=== PATIENT | female | born 1955 | race Caucasian/White ===

== ENCOUNTER 2018-06-17 08:01 | Outpatient (CLI) | payer MEDICARE ==
--- NOTE | 2018-06-17 10:03 | MRI ---
MRI LUMBAR SPINE: HISTORY: Lumbar radiculopathy, M54.16. TECHNIQUE: Multiplanar, multisequence, noncontrast enhanced MR images of the lumbar spine obtained. FINDINGS: Images demonstrate an approximately 40% compression fracture involving the L1 vertebral body, especia lly involving the superior endplate of the L1 level. This appears to be old. T12-L1: There is a small central disk protrusion in the right paracentral T12-L1 level, minimally bu t not significantly compressing the thecal sac. The spinal cord is not compressed. The neural rylee en are patent. L1-L2: Disk desiccation is seen. There is a broad-based disk bulge with bilateral facet hypertrophy . No significant degree of central stenosis seen. The neural foramen are patent. L2-L3: Moderate bilateral facet hypertrophy is seen. No significant degree of central stenosis is s een. The neural foramen are patent. L3-L4: There are some congenitally short pedicles. Moderate bilateral facet hypertrophic change is seen. Ligamentum flavum hypertrophy is also seen. This results in a moderate degree of L3-L4 centra l and lateral recess stenosis. No evidence of disk herniation is seen. The neural foramen are paten t. L4-L5: Disk desiccation is seen. There is a broad-based central disk protrusion. Bilateral facet a nd ligamentum flavum hypertrophy is seen. This results in severe L4-L5 central and lateral recess st enosis. Moderate bilateral neural foraminal narrowing is also seen. L5-S1: A broad-based central disk protrusion is seen. Bilateral facet hypertrophy is seen. This re sults in a mild but not significant degree of central stenosis. Mild bilateral neural foraminal narr owing is seen. IMPRESSION: Severe L4-L5 central and lateral recess stenosis due to a broad-based central disk protrusion and kevin ateral facet and ligamentum flavum hypertrophy. POS: C
== END 2018-06-17 08:02 | disposition home or self-care (01) ==
LOC: TBSIIMAG 08:01
PROVIDERS: ATTEND Neurological Surgery
DX: M51.16 Intervertebral disc disorders with radiculopathy, lumbar region (principal); M48.061 Spinal stenosis, lumbar region without neurogenic claudication; M24.28 Disorder of ligament, vertebrae
CPT/HCPCS: 72148

== ENCOUNTER 2018-08-19 15:11 | Outpatient (CLI) | payer MEDICARE, OTHER | END 2018-08-19 15:12 | disposition home or self-care (01) | LOC: BICMAMMO 15:11 | PROVIDERS: ATTEND Family Medicine | DX: Z12.31 Encounter for screening mammogram for malignant neoplasm of breast (principal); L90.5 Scar conditions and fibrosis of skin; Z85.3 Personal history of malignant neoplasm of breast; Z80.3 Family history of malignant neoplasm of breast; Z98.890 Other specified postprocedural states | CPT/HCPCS: 77063; 77067 ==

== ENCOUNTER 2018-09-10 14:53 | Outpatient (CLI) | payer MEDICARE, OTHER ==
--- NOTE | 2018-09-10 16:05 | RAD ---
RADIOGRAPH CHEST 2 VIEWS: HISTORY: 63-year-old female with cough and fever. FINDINGS: There is no air space density, pulmonary edema, pleural effusion, pneumothorax, or cardiomegaly. IMPRESSION: No acute cardiopulmonary findings. jn [] POS: [facility]
== END 2018-09-10 14:54 | disposition home or self-care (01) ==
LOC: SCSRAD 14:53
PROVIDERS: ATTEND Family Medicine
DX: J18.9 Pneumonia, unspecified organism (principal)
CPT/HCPCS: 71046

== ENCOUNTER 2018-12-28 16:37 | Outpatient (CLI) | payer MEDICARE, OTHER ==
--- NOTE | 2018-12-29 16:07 | RAD ---
F2 views left ankle HISTORY: left ankle pain AP and lateral views left ankle demonstrates soft tissue swelling adjacent to the lateral malleolus. This is compatible with soft tissue injury. No evidence of acute fractures or bony lesions seen. IMPRESSION: No evidence of acute fractures. Lateral ankle soft tissue swelling.
--- NOTE | 2018-12-29 16:14 | RAD ---
RIGHT KNEE TWO VIEWS: 12/29/18 HISTORY: Bilateral knee pain. There are arthritic changes of the knee. There is spiking of the tibial spines. There is some minimal medial compartment narrowing. Small patellofemoral spurs. IMPRESSION: Mild arthritic changes of the knee. POS: [facility]
--- NOTE | 2018-12-29 16:15 | RAD ---
TWO VIEWS OF THE LEFT KNEE: 12/29/18 COMPARISON: None. HISTORY: Bilateral knee pain. FINDINGS: Two views of the left knee shows no evidence of acute fracture or dislocation. Small osteophytes are seen in all three compartments consistent with osteoarthritis. No knee effusion is seen. IMPRESSION: Mild left knee osteoarthritis. POS: [facility]
== END 2018-12-28 16:38 | disposition home or self-care (01) ==
LOC: SCSRAD 16:37
PROVIDERS: ATTEND Physical Medicine & Rehabilitation
DX: M25.561 Pain in right knee (principal); M25.562 Pain in left knee; M17.0 Bilateral primary osteoarthritis of knee; M25.572 Pain in left ankle and joints of left foot; M79.89 Other specified soft tissue disorders

== ENCOUNTER 2019-05-03 12:01 | Outpatient (CLI) | payer MEDICARE, OTHER ==
--- NOTE | 2019-05-03 13:52 | MRI ---
MRI LUMBAR SPINE WITHOUT CONTRAST: HISTORY: Lumbago. COMPARISON: 06/17/2018 FINDINGS: Stable chronic compression fracture with mild loss of vertebral body height at L1. No significant re tropulsion. Appropriate signal intensity in the remaining lumbar vertebrae. No significant STIR hyperintensity t o suggest vertebral body edema or ligamentous injury. Symmetric signal intensity of the paraspinal muscles. Appropriate signal intensity of the visualized solid organs. The conus medullaris terminates at the mid T12 level. T12-L1: Mild central canal stenosis secondary to disk protrusion. There is mass effect upon the rig ht hemicord. No cord signal abnormality. Bilaterally, the neural foramina are patent. L1-L2: Adequate disk hydration. Minimal left and right paracentral disk bulges without significant central canal stenosis. The neural foramina are patent. L2-L3: Adequate disk hydration. No significant posterior disk abnormality. There is ligamentum fla vum thickening and facet hypertrophy. No significant central canal stenosis. Bilaterally, the neura l foramina are patent. L3-L4: Adequate disk hydration. No significant posterior disk abnormality. No significant central canal stenosis. Ligamentum flavum thickening and facet hypertrophy are present. Bilaterally, the ne ural foramina are patent. L4-L5: Desiccation with mild loss of disk space height. Broad-based disk bulge, ligamentum flavum t hickening, and facet hypertrophy result in moderate central canal stenosis. Moderate right and moder ate to severe left foraminal narrowing, predominantly due to disk material. L5-S1: Desiccation with mild loss of disk space height. There is a posterior disk protrusion that a buts the thecal sac. No significant central canal stenosis. The neural foramina are mildly narrowed bilaterally. When compared to the previous examination, the degree of central canal stenosis at L4-L5 has not smiley ged; however, there is progression of bilateral foraminal narrowing. Stable changes at L5-S1. IMPRESSION: 1. Degenerative disk disease of the lumbar spine, as above. 2. Slightly worsening neural foraminal narrowing at L4-L5. Currently, there is moderate neural fora ashley narrowing on the right at L4-L5 and moderate to severe neural foraminal narrowing on the left a t L4-L5. POS: OFF
== END 2019-05-03 12:02 | disposition home or self-care (01) ==
LOC: BICMRI 12:01
PROVIDERS: ATTEND Physical Medicine & Rehabilitation
DX: M48.07 Spinal stenosis, lumbosacral region (principal); M79.605 Pain in left leg; M51.36 Other intervertebral disc degeneration, lumbar region
CPT/HCPCS: 72148

== ENCOUNTER 2019-06-08 14:02 | Outpatient (CLI) | payer MEDICARE, OTHER ==
--- NOTE | 2019-06-08 14:50 | BD ---
DEXA BONE DENSITOMETRY: (Dual energy X-ray Absorptiometry) 06/08/19 HISTORY: 64-year-old white female for age-related, postmenopausal, osteoporosis screening examination. Ht. 69 inches. Wt. 240 lbs. Age of menopause: 46 years. COMPARISON: None available. FINDINGS: The bone mineral density (BMD) is given in grams per square centimeter (g/cm2): LUMBAR SPINE: BMD(g/cm2) T-score Z-score L1: 1.284 2.7 4.3 L2: 1.160 1.2 3.0 L3: 1.165 0.7 2.6 L4: 1.091 0.3 2.2 Total: 1.169 1.1 2.9 HIP: Femoral neck: 0.818 -0.3 1.3 Total: 1.219 2.3 3.6 IMPRESSION: 1) The mean bone mineral density of the lumbar spine is normal. Fracture risk is not increased. 2) The bone mineral density of the femoral neck is normal. Fracture risk is not increased. GABINO R POS: [facility]
== END 2019-06-08 14:03 | disposition home or self-care (01) ==
LOC: BICMAMMO 14:02
PROVIDERS: ATTEND Family Medicine
DX: Z13.820 Encounter for screening for osteoporosis (principal); E28.39 Other primary ovarian failure; Z78.0 Asymptomatic menopausal state
CPT/HCPCS: 77080

== ENCOUNTER 2019-06-15 10:45 | Outpatient (CLI) | payer MEDICARE, OTHER ==
--- NOTE | 2019-06-15 12:43 | RAD ---
RIGHT SHOULDER 4 VIEWS: Date: 06/15/19 HISTORY: Shoulder pain. FINDINGS: No fracture or dislocation identified. AC joint normally aligned. No significant degenerative change apparent. IMPRESSION: No acute findings. POS: OFF
== END 2019-06-15 10:46 | disposition home or self-care (01) ==
LOC: SCSRAD 10:45
PROVIDERS: ATTEND Family Medicine
DX: M25.511 Pain in right shoulder (principal)
CPT/HCPCS: 36415; 80053; 80061; 81001; 82043; 84443; 85025; 86803

== ENCOUNTER 2019-06-21 15:10 | Outpatient (CLI) | payer MEDICARE, OTHER | END 2019-06-21 15:11 | disposition home or self-care (01) | LOC: DTY/OP 15:10 | PROVIDERS: ATTEND Family Medicine | DX: E11.65 Type 2 diabetes mellitus with hyperglycemia (principal) | CPT/HCPCS: 97802 ==

== ENCOUNTER 2019-08-23 16:02 | Outpatient (CLI) | payer MEDICARE, OTHER ==
--- NOTE | 2019-08-24 08:22 | MMO ---
Bilateral MAMMO Bilat Screen [facility]. CLINICAL HISTORY: Patient is 64 years old and is seen for screening. The patient has the following family history of breast cancer: mother; sister and maternal grandmother. The patient has a history of Ultrasound guided core biopsy procedure revealed invasive ductal left breast carcinoma in Feb, 2009 and malignant (generic) in the left breast 2008. The patient has a history of left Lumpectomy in Feb, 2009 - invasive ductal carcinoma - PT STATES Partial MAST., left Lumpectomy in Feb, 2009 - malignant, right Excisional Biopsy in 1996 - benign and left Excisional Biopsy in 1985 - benign. VIEWS: The views performed were: bilateral craniocaudal with tomosynthesis and bilateral mediolateral oblique with tomosynthesis. FILMS COMPARED: The present examination has been compared to prior imaging studies performed at [facility] on 06/05/2015, 06/17/2016, 06/30/2017 and 08/19/2018. This study has been interpreted with the assistance of computer-aided detection. MAMMOGRAM FINDINGS: There are scattered fibroglandular densities. Finding 1: There are stable benign appearing calcifications seen in both breasts. Finding 2: There are stable post operative changes seen in the left breast. There are no suspicious masses, suspicious calcifications, or new areas of architectural distortion. IMPRESSION: THERE IS NO MAMMOGRAPHIC EVIDENCE OF MALIGNANCY. A ROUTINE FOLLOW-UP MAMMOGRAM IN 1 YEAR IS RECOMMENDED. THE RESULTS OF THIS EXAM WERE SENT TO THE PATIENT. ACR BI-RADS Category 2 - Benign finding MAMMOGRAPHY NOTE: 1. A negative mammogram report should not delay a biopsy if a dominant of clinically suspicious mass is present. 2. Approximately 10% to 15% of breast cancers are not detected by mammography. 3. Adenosis and dense breasts may obscure an underlying neoplasm. Reported by: TYSON PEDRAZA MD Electonically Signed: [id number]
== END 2019-08-23 16:03 | disposition home or self-care (01) ==
LOC: BICMAMMO 16:02
PROVIDERS: ATTEND Family Medicine
DX: Z12.31 Encounter for screening mammogram for malignant neoplasm of breast (principal); Z80.3 Family history of malignant neoplasm of breast
CPT/HCPCS: 77063; 77067

== ENCOUNTER 2019-11-04 14:25 | Outpatient (CLI) | payer MEDICARE, OTHER ==
--- NOTE | 2019-11-04 15:34 | MRI ---
MRI of thecervical spine: 11/04/2019 COMPARISON:None available HISTORY:Cervical spondylosis TECHNIQUE: Multiplanar multisequence MR imaging of thecervical spine without contrast Findings:The sagittal STIR imaging demonstrates no focal area of osseous marrow edema. C2-3: No significant central canal stenosis. Bilateral facet and uncovertebral osteophyte formation, right greater than left. Moderate right neural foraminal stenosis. No significant left neural foraminal stenosis. C3-4: Disc desiccation and mild disc bulge with mild central canal stenosis. Mild bilateral facet and uncovertebral osteophyte formation with mild bilateral neural foraminal stenosis. C4-5: Disc desiccation with minimal disc bulge and small central disc protrusion with minimal associa arnold central canal stenosis. No significant neural foraminal stenosis. C5-6: There is disc space narrowing with disc desiccation and mild disc bulge partially effacing the ventral thecal sac and causing mild central canal stenosis. Facet and uncovertebral osteophyte formation noted bilaterally with mild/moderate bilateral neural foraminal stenosis, right greater sher n left. C6-7: Disc space narrowing with disc desiccation and disc bulge effacing the ventral thecal sac and c ausing a mild/moderate degree of central canal stenosis. Bilateral facet and uncovertebral osteophyte formation with moderate/severe bilateral neural foraminal stenosis, left greater than righ t. C7-T1: Mild bilateral facet hypertrophy with no significant central canal or neural foraminal stenosi s. Detailed assessment for central canal and/or neural foraminal stenosis is limited secondary to motion artifact. No focal area of abnormal signal intensity identified within the cervical cord. IMPRESSION:Multilevel cervical spine degenerative change, most prominent at C6-7 as detailed above.
== END 2019-11-04 14:26 | disposition home or self-care (01) ==
LOC: TBSIIMAG 14:25
PROVIDERS: ATTEND Neurological Surgery
DX: M47.812 Spondylosis without myelopathy or radiculopathy, cervical region (principal)
CPT/HCPCS: 72141

== ENCOUNTER 2019-11-11 05:29 | Outpatient (CLI) | payer MEDICARE ==
[2019-11-11 16:09] LABS: Anion Gap 15 mmol/L (10-20); BUN (Urea Nitrogen) 25 mg/dL (9.8-20.1); Calc. Creatinine Clearance 0 mL/min (70-130); Calcium 10.6 mg/dL (7.8-10.44); Carbon Dioxide 26 mmol/L (23-31); Chloride 101 mmol/L (98-107); Estimated GFR-MDRD 48; Glucose 241 mg/dL (80-115); Potassium 4.6 mmol/L (3.5-5.1); Sodium 137 mmol/L (136-145)
== END 2019-11-11 05:30 | disposition home or self-care (01) ==
LOC: LABBT 05:29
PROVIDERS: ATTEND Neurological Surgery
DX: Z01.812 Encounter for preprocedural laboratory examination (principal); M47.816 Spondylosis without myelopathy or radiculopathy, lumbar region
CPT/HCPCS: 80048

== ENCOUNTER 2019-11-14 07:41 | Inpatient (IN) | payer MEDICARE ==
[2019-11-11 14:35] VITALS: BMI 37.5
--- NOTE | 2019-11-14 07:14 | HP ---
HISTORY OF PRESENT ILLNESS: Ms. Hickey is a pleasant 64-year-old woman, here today, known to us for previous evaluation in the end of 2017 for lower back pain and bilateral lower extremity discomforts, who we ultimately referred to for epidural steroid injections. She has been doing well with those until a fall in March of this past year, at which point, her pain took a turn for the worse and the injections started to lose their efficacy. She has had some left anterior thigh pain and numbness, but really her major concerns are that of neurogenic claudication. She is walker dependent at this point. She brings an MRI from April of 2018 that reveals severe central canal stenosis at L4-L5. PHYSICAL EXAMINATION: GENERAL: She is alert and oriented x3. Gait is severely antalgic and slow. She uses a walker and at times even uses a wheelchair. EXTREMITIES: Lower extremity; motor exam is normal, though limited by pain. She has a positive right and left straight leg raise. Negative Leigh bilaterally. PAST MEDICAL HISTORY: Significant for hypercholesterolemia, chronic pain syndrome, anxiety, arthritis, depression, diabetes, headaches, hypertension, and hypothyroidism. PAST SURGICAL HISTORY: Tonsillectomy and adenoidectomy, 2 benign breast mass resections, partial hysterectomy, cholecystectomy, tubal ligation. ALLERGIES: PENICILLINS AND STATIN. CURRENT MEDICATIONS: 1. Glipizide. 2. Tramadol. 3. Tizanidine. 4. Olanzapine. 5. Trazodone. 6. Bupropion. 7. Duloxetine. 8. Metformin. 9. Januvia. 10. Amlodipine. 11. Armodafinil. 12. Olmesartan. 13. Gabapentin. 14. Levothyroxine. 15. Hydrochlorothiazide. 16. Vitamin D. 17. Colestipol. 18. Fluticasone. ASSESSMENT: Lumbar spinal stenosis and neurogenic claudication. PLAN: Dr. Mejia met with the patient, reviewed imaging, and advocated for an L4-L5 decompression. He explained to the patient risks, benefits, and alternatives to the procedure. The patient expressed understanding and elected to move forward with surgery as discussed. I do believe the patient is mentally competent and capable of making medical decisions for herself. We will move forward with surgery as planned. Job ID: [id number]
[2019-11-14] MEDS ORDERED: Levofloxacin 500 mg/D5W 100 ml Premix Bag ONE (08:38)
[2019-11-14] MEDS ORDERED: Clindamycin/D5W 900 mg/50 ml Premix Bag ONE (08:38)
[2019-11-14] MEDS ORDERED: Morphine 4 MG/ML VIAL ONE ×2 (08:54→09:53)
[2019-11-14] MEDS ORDERED: Bupivacaine PF 0.5% 30 ML VIAL ONE (10:01)
[2019-11-14] MEDS ORDERED: Thrombin 5000 UNITS/5 ML VIAL ONE (10:01)
[2019-11-14] MEDS ORDERED: Fentanyl 100 MCG/2 ML VIAL ONE ×2 (10:27→11:35)
--- NOTE | 2019-11-14 11:45 | OP ---
DATE OF PROCEDURE: 11/14/2019 CHIEF ESTIMATOR: Wang Nguyễn PA-C INDICATION: Pain. DIAGNOSIS: Lumbar stenosis with claudication and radiculopathy. PROCEDURE PERFORMED: L4-L5 lumbar decompression. ANESTHESIA: General. DESCRIPTION OF PROCEDURE: The patient was brought into the operating room and placed under general anesthesia. She was flipped from the supine to a prone position on the operating room table. A linear incision was planned over L4-L5. After prepping and draping, and after an appropriate preoperative pause, the incision was created. The soft tissues were swept away from midline. Self-retaining retractors were placed in the wound for optimal exposure. After confirming the appropriate level with C-arm fluoroscopy, an Adson rongeur was used to remove the spinous process along the inferior aspect of L4 and the superior aspect of L5. High-speed cutting drill bit as well as 2, 3, and 4 mm Kerrisons were then used to complete the laminectomy at L4-L5 decompressing the central canal as well as the lateral recesses. After completing the decompression, the wound was irrigated. Hemostasis was maintained throughout. The wound was then closed in anatomic layers, and a pressure dressing was applied. There were no known procedural complications. Job ID: [id number]
[2019-11-14] MEDS ORDERED: HYDROcodone/Acetaminophen 5/325 mg Tablet ONE (13:40)
[2019-11-14] MEDS ORDERED: Lidocaine 1% PF 5 ML VIAL ONE (15:06)
[2019-11-14] MEDS ORDERED: PROPOFOL 200 MG/20 ML VIAL ONE (15:06)
[2019-11-14] MEDS ORDERED: Rocuronium Bromide 10 MG/ML (10ML VIAL) ONE (15:06)
[2019-11-14] MEDS ORDERED: Metoclopramide HCl 10 MG/2 ML VIAL ONE (15:06)
[2019-11-14] MEDS ORDERED: Glycopyrrolate 0.2 MG/ML 5 ML SYRINGE ONE (15:06)
[2019-11-14] MEDS ORDERED: diphenhydrAMINE 25 MG CAP PO PRN (16:48)
[2019-11-14] MEDS ORDERED: Bisacodyl 10 MG SUPP PR PRN (16:48)
[2019-11-14] MEDS ORDERED: diphenhydrAMINE 50 MG/ML VIAL IVP PRN (16:48)
[2019-11-14] MEDS ORDERED: Acetaminophen 325 MG TAB PO PRN (16:48)
[2019-11-14] MEDS ORDERED: Mag-Al 1200 mg/1200 mg/30 ML UDCUP PO PRN (16:48)
[2019-11-14] MEDS ORDERED: Morphine 4 MG/ML VIAL SLOW IVP PRN (16:48)
[2019-11-14] MEDS ORDERED: tiZANidine HCl 4 MG TAB PO PRN (16:58)
[2019-11-14] MEDS ORDERED: Ondansetron PF 4 MG/2 ML Vial IM PRN (16:59)
[2019-11-14] MEDS ORDERED: Morphine 2 MG/ML SYRINGE SLOW IVP PRN (17:01)
[2019-11-14] MEDS ORDERED: Gabapentin 300 MG CAP PO SCH (17:15)
[2019-11-14] MEDS ORDERED: Acetaminophen/Codeine 30-300mg Tablet PO PRN (17:49)
[2019-11-14] MEDS: Acetaminophen/Codeine 30-300mg Tablet PO PRN ×2 (18:02→21:23)
[2019-11-14] MEDS: Sodium Chloride 0.9% 1,000 ML IV SCH (18:33)
[2019-11-14] MEDS ORDERED: DULoxetine 30 MG CAP PO SCH (21:00)
[2019-11-14] MEDS ORDERED: Melatonin 3 MG TAB PO SCH (21:00)
[2019-11-14] MEDS ORDERED: APAP PO SCH (21:00)
[2019-11-14] MEDS ORDERED: CODEINE PO SCH (21:00)
[2019-11-14] MEDS: Loperamide HCl 2 MG CAP PO SCH (21:22)
[2019-11-14] MEDS: tiZANidine HCl 4 MG TAB PO SCH (21:22)
[2019-11-14] MEDS: Gabapentin 300 MG CAP PO SCH (21:22)
[2019-11-15] MEDS: Acetaminophen/Codeine 30-300mg Tablet PO PRN ×3 (00:24→11:07)
[2019-11-15] MEDS ORDERED: Levothyroxine Sodium 25 MCG TAB PO SCH (06:00)
[2019-11-15] MEDS: Sodium Chloride 0.9% 1,000 ML IV SCH (06:33)
[2019-11-15] MEDS ORDERED: glipiZIDE 10 MG TAB PO SCH (07:30)
[2019-11-15] MEDS ORDERED: metFORMIN 500 MG TAB PO SCH (08:00)
[2019-11-15] MEDS: tiZANidine HCl 4 MG TAB PO SCH (08:10)
[2019-11-15] MEDS: Losartan 25 MG TAB PO SCH ×2 (08:10→11:14)
[2019-11-15] MEDS: Loperamide HCl 2 MG CAP PO SCH (08:12)
[2019-11-15] MEDS: Gabapentin 300 MG CAP PO SCH (08:12)
[2019-11-15] MEDS ORDERED: Multivitamin W/ Minerals 1 TAB PO SCH (09:00)
[2019-11-15] MEDS ORDERED: ARMODAFINIL 250 MG PO SCH (09:00)
[2019-11-15] MEDS ORDERED: Hydrochlorothiazide 25 MG TAB PO SCH (09:00)
[2019-11-15] MEDS ORDERED: Amlodipine 10 MG TAB PO SCH (09:00)
[2019-11-15] MEDS ORDERED: buPROPion 75 MG TAB PO SCH (09:00)
[2019-11-15] MEDS ORDERED: Cyanocobalamin (Vitamin B-12) 1,000 MCG TAB PO SCH (09:00)
[2019-11-15] MEDS ORDERED: traZODone HCl 50 MG TAB PO SCH (09:00)
[2019-11-15] MEDS ORDERED: Fish Oil 1,000 MG CAP PO SCH (09:00)
[2019-11-15] MEDS ORDERED: BIOTIN 1 MG PO SCH (09:00)
[2019-11-15] MEDS ORDERED: Ubidecarenone 50 MG CAP PO SCH (09:00)
[2019-11-15] MEDS ORDERED: Alogliptin 25 MG TAB PO SCH (09:00)
--- NOTE | 2019-11-15 10:22 | DIS ---
DATE OF ADMISSION: 11/14/2019 DATE OF DISCHARGE: 11/14/2019 Ms. Hickey is a 64-year-old woman admitted to [facility] with Dr. Vini Mejia on November 14, 2019 with subsequent discharge on November 15, 2019. ADMISSION DIAGNOSES: Status post lumbar laminectomy and lumbar spinal stenosis. DISCHARGE DIAGNOSES: Status post lumbar laminectomy and lumbar spinal stenosis. HOSPITAL COURSE: Ms. Hickey's hospital course was not complicated by any significant issue. She had mild pain control troubles which were reasonably managed with our typical fnjo-dis-ciznido and IV medications in the postoperative state. She is ambulated to and from the bathroom on her own accord without assistance and done well with that. She ambulated in the dudley with minimal need for assistance and was discharged home in good condition with outpatient followup planned in 2 weeks. Job ID: [id number]
[2019-11-15 11:15] VITALS: BP 121/60; TEMP 98.2
== END 2019-11-15 13:25 | disposition home or self-care (01) | DRG 517 ==
LOC: SDC 07:41 → SURG A 15:30 → OBSVTOIN 16:50
PROVIDERS: ADMIT Neurological Surgery; ATTEND Neurological Surgery
PROC: 01NB0ZZ Release Lumbar Nerve, Open Approach (ICD-10-PCS; principal; 2019-11-14)
DX: M48.062 Spinal stenosis, lumbar region with neurogenic claudication (principal); M54.16 Radiculopathy, lumbar region; E78.00 Pure hypercholesterolemia, unspecified; F41.9 Anxiety disorder, unspecified; M19.90 Unspecified osteoarthritis, unspecified site; F32.9 Major depressive disorder, single episode, unspecified; E11.9 Type 2 diabetes mellitus without complications; I10 Essential (primary) hypertension; E03.9 Hypothyroidism, unspecified; E78.5 Hyperlipidemia, unspecified; G47.33 Obstructive sleep apnea (adult) (pediatric); G89.4 Chronic pain syndrome; K58.9 Irritable bowel syndrome, unspecified; J30.2 Other seasonal allergic rhinitis; M79.7 Fibromyalgia; Z88.0 Allergy status to penicillin; Z88.8 Allergy status to other drugs, medicaments and biological substances; Z79.4 Long term (current) use of insulin; Z79.899 Other long term (current) drug therapy; Z90.49 Acquired absence of other specified parts of digestive tract; Z90.712 Acquired absence of cervix with remaining uterus; Z98.51 Tubal ligation status; Z79.890 Hormone replacement therapy
CPT/HCPCS: 36416; 76000; 80048; J0690; J1956; J2001; J2270; J2704; J2765; J3010; J3490; Q0163; S0020

== ENCOUNTER 2020-08-16 14:26 | Observation (INO) | payer MEDICARE ==
[2020-08-16] MEDS ORDERED: diphenhydrAMINE 50 MG/ML VIAL ONE (16:52)
[2020-08-16] MEDS ORDERED: Metoclopramide HCl 10 MG/2 ML VIAL ONE (16:52)
--- NOTE | 2020-08-16 17:15 | CT ---
CT OF BRAIN PERFORMED WITHOUT CONTRAST ENHANCEMENT: 08/16/20 HISTORY: Headache, dizziness and high blood pressure. COMPARISON: 08/14/20 exam. The ventricular and cisternal system is within normal limits for age. There is no signs of intracereb ral hemorrhage or extra-axial fluid collections. Mastoid air cells and visualized sinuses are clear. IMPRESSION: No acute intracranial abnormalities. POS: [facility]
--- NOTE | 2020-08-16 17:17 | RAD ---
RADIOGRAPH CHEST 1 VIEW: DATE: 08/16/2020 HISTORY: 65-year-old female with hypertension FINDINGS: There are no airspace densities, pulmonary edema, pneumothorax, or cardiomegaly. The lateral costophr enic angles are sharp. IMPRESSION: No acute cardiopulmonary findings.
[2020-08-16 17:18] LABS: #Basophils 0.1 thou/uL (0.0-0.2); #Eosinphils 0.2 thou/uL (0.0-0.7); #Lymphocytes 3.2 thou/uL (1.20-3.40); #Monocytes 0.7 thou/uL (0.11-0.59); #Neutrophils 5.3 thou/uL (1.40-6.50); %Eosinophils 2.3 % (0.0-10.0); %Lymphocytes 33.8 % (21.0-51.0); %Monocytes 7.6 % (0.0-10.0); %Neutrophils 55.3 % (42.0-75.0); Hemoglobin 13.7 g/dL (12.0-16.0); Mean Corpuscular HGB CONC 34.1 g/dL (32.0-36.0); Mean Corpuscular Hemoglobin 32.1 pg (27.0-31.0); Mean Corpuscular Volume 94.1 fL (78.0-98.0); Platelet Count 333 thou/uL (130-400); RBC Distribution Width 11.7 % (11.5-14.5); Red Blood Cell (RBC) Count 4.27 mill/uL (4.20-5.40); White Blood Cell (WBC) Count 9.5 thou/uL (4.8-10.8)
[2020-08-16 17:31] LABS: CK (CPK) 124 U/L (29-168); Lipase 31 U/L (8-78)
[2020-08-16 17:32] LABS: ALT (SGPT) 65 U/L (8-55); AST (SGOT) 20 U/L (5-34); Albumin 4.3 g/dL (3.4-4.8); Alkaline Phosphatase 108 U/L (40-110); Anion Gap 17 mmol/L (10-20); BUN (Urea Nitrogen) 18 mg/dL (9.8-20.1); Bilirubin, Total 0.3 mg/dL (0.2-1.2); Calc. Creatinine Clearance 0 mL/min (70-130); Carbon Dioxide 28 mmol/L (23-31); Chloride 97 mmol/L (98-107); Estimated GFR-MDRD 45; Glucose 258 mg/dL (80-115); Potassium 3.6 mmol/L (3.5-5.1); Protein, Total 8.3 g/dL (6.0-8.3); Sodium 138 mmol/L (136-145)
[2020-08-16] MEDS ORDERED: Amlodipine 5 MG TAB ONE (18:51)
[2020-08-16] MEDS ORDERED: hydrALAZINE 10 MG TAB PO SCH (19:00)
[2020-08-16] MEDS ORDERED: Labetalol HCl 100 MG/20 ML VIAL ONE (20:27)
[2020-08-16 22:29] LABS: Troponin I Less than 0.010 ng/mL (< 0.028)
[2020-08-16] MEDS ORDERED: Ondansetron PF 4 MG/2 ML Vial IVP PRN (23:00)
[2020-08-16 23:52] VITALS: BMI 36.6
[2020-08-17] MEDS ORDERED: Fioricet 325/50/40 mg Tablet PO PRN (00:06)
--- NOTE | 2020-08-17 00:13 | PDOC.HHP ---
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 patient refers she was on her usual state of health until until thursday when she felt weak and dizzy. she states she visted and ed and was diagnosed with uti and hypotension at that time. she was given ivfs and macrobid and sent home. patient refers she has been taken all of her medication. she states at some point she started with the headache which she cannot recall if it was before or after abx tx. she states he has had constant headache for the last 2-3 days described as 8/10 of intensity, non relenting, concentrated in the forehead non radiating w/o exacerbating or improving factors, no motor or sensorial deficits, denies watery eyes, does refers some nausea no vomiting. she states had a schedule appointment with her gastroenterolegist for f/u results of colonoscopy which sent her to hospital due to b/p in the 180s. Hospitalist ROS - Review of Systems All other systems reviewed; all pertinent +/- noted in HPI/Subj Hospitalist History - Past Surgical History Past Surgical History: reports: Cholecystectomy, Mastectomy - Family History Family History: reports: cancer - Social History Smoking Status: Never smoker Alcohol: reports: Occassional Drugs: reports: none - Exam General Appearance: NAD, awake alert Eye: PERRL, anicteric sclera ENT: normocephalic atraumatic, no oropharyngeal lesions Neck: supple, symmetric, no JVD Heart: RRR, no murmur, no gallops, no rubs Respiratory: CTAB, no wheezes, no rales, no ronchi Gastrointestinal: soft, non-tender, non-distended, normal bowel sounds Extremities: no cyanosis, no clubbing, no edema Skin: normal turgor, no lesions, no rashes Neurological: cranial nerve grossly intact, normal sensation to touch, no weakness, no focal deficits, no new deficit Musculoskeletal: normal tone, normal strength, no muscle wasting Psychiatric: normal affect, normal behavior, A&O x 3 Hospitalist Results - Labs Result Diagrams: 08/16/20 16:57 08/16/20 16:57 Lab results: WBC 9.5 thou/uL (4.8-10.8) 08/16/20 16:57 Hgb 13.7 g/dL (12.0-16.0) 08/16/20 16:57 Hct 40.2 % (36.0-47.0) 08/16/20 16:57 MCV 94.1 fL (78.0-98.0) 08/16/20 16:57 Plt Count 333 thou/uL (130-400) 08/16/20 16:57 Neutrophils % 55.3 % (42.0-75.0) 08/16/20 16:57 Sodium 138 mmol/L (136-145) 08/16/20 16:57 Potassium 3.6 mmol/L (3.5-5.1) 08/16/20 16:57 Chloride 97 mmol/L (98-107) L 08/16/20 16:57 Carbon Dioxide 28 mmol/L (23-31) 08/16/20 16:57 BUN 18 mg/dL (9.8-20.1) 08/16/20 16:57 Creatinine 1.19 mg/dL (0.6-1.1) H 08/16/20 16:57 Glucose 258 mg/dL (80-115) H 08/16/20 16:57 Calcium 10.0 mg/dL (7.8-10.44) 08/16/20 16:57 Total Bilirubin 0.3 mg/dL (0.2-1.2) 08/16/20 16:57 AST 20 U/L (5-34) 08/16/20 16:57 ALT 65 U/L (8-55) H 08/16/20 16:57 Alkaline Phosphatase 108 U/L (40-110) 08/16/20 16:57 Creatine Kinase 124 U/L (29-168) 08/16/20 16:57 Troponin I Less than 0.010 ng/mL (< 0.028) 08/16/20 21:44 Serum Total Protein 8.3 g/dL (6.0-8.3) 08/16/20 16:57 Albumin 4.3 g/dL (3.4-4.8) 08/16/20 16:57 Lipase 31 U/L (8-78) 08/16/20 16:57 Hospitalist H&P A/P - Problem (1) Intractable headache Code(s): R51.9 - HEADACHE, UNSPECIFIED Status: Acute (2) Hypertensive urgency Code(s): I16.0 - HYPERTENSIVE URGENCY Status: Acute (3) Diabetes Code(s): E11.9 - TYPE 2 DIABETES MELLITUS WITHOUT COMPLICATIONS Status: Acute (4) Fibromyalgia Status: Acute (5) Hx of breast cancer Code(s): Z85.3 - PERSONAL HISTORY OF MALIGNANT NEOPLASM OF BREAST Status: Acute (6) Hypothyroidism Code(s): E03.9 - HYPOTHYROIDISM, UNSPECIFIED Status: Acute - Plan Plan: case of an 65y/o female with the stated pmhx who comes to hospital due to intractable headache and increased b/p intractable headache - head ct negative - pt refers hx of migrane, last episode 5years ago - side effect of macobrid includes headache - pain management. this could be difficult pt w fibromyalgia in multiple pain meds hypertensive urgency - could be secondary to pain - continue home meds - iv labetalol dm - long acting insuling - ss + acc hypothyroidism - continue home meds - check tsh
[2020-08-17] MEDS ORDERED: Labetalol HCl 100 MG/20 ML VIAL SLOW IVP PRN (00:46)
[2020-08-17] MEDS ORDERED: Aspirin/APAP/Caffeine Tab (Excedrin Migraine) PO PRN (00:49)
[2020-08-17] MEDS ORDERED: Dextrose 50% Abboject 50 ML SYRINGE SLOW IVP PRN (01:02)
[2020-08-17] MEDS ORDERED: Dextrose 5% in Water 1,000 ML IV PRN (01:02)
[2020-08-17] MEDS: Ondansetron ODT 4 MG TAB SL PRN ×2 (01:31→09:34)
[2020-08-17] MEDS ORDERED: traZODone HCl 50 MG TAB PO SCH ×2 (02:00→21:00)
[2020-08-17 02:23] LABS: Troponin I Less than 0.010 ng/mL (< 0.028)
[2020-08-17] MEDS: Aspirin/APAP/Caffeine Tab (Excedrin Migraine) PO PRN ×2 (02:36→09:35)
[2020-08-17] MEDS ORDERED: Levothyroxine Sodium 25 MCG TAB PO SCH (06:00)
[2020-08-17] MEDS ORDERED: Levothyroxine Sodium 100 MCG TAB PO SCH (06:00)
[2020-08-17] MEDS: HumaLOG 300 UNITS/3 ML VIAL SC PRN ×3 (06:08→16:49)
[2020-08-17 06:59] LABS: Bacteria/HPF None Seen HPF (None Seen); Bilirubin Negative (Negative); Blood, Urine Trace (Negative); Clarity Clear (Clear); Glucose, Urine (Dipstick) Greater than 1000 mg/dL (Negative); Ketone, Urine 10 mg/dL (Negative); Leukocyte Negative Leu/uL (Negative); Nitrite Negative (Negative); Protein, Urine (Dipstick) 30 mg/dL (Neg-Trace); RBC/HPF 0-3 HPF (0-3); Specific Gravity, Urine 1.028 (1.002-1.036); Squamous Epithelial 0-3 HPF (0-3); Urobilinogen Normal mg/dL (Less than 2); pH, Urine 5.5 (5.0-9.0)
[2020-08-17 07:06] LABS: Urine Culture Reflex Yes Yes
[2020-08-17] MEDS ORDERED: Non-Formulary Item 1 EACH (Tizanidine Hcl [Tizanidine Hcl] 4 MG Capsule) PO PRN (07:16)
[2020-08-17] MEDS ORDERED: tiZANidine HCl 4 MG TAB PO PRN (07:35)
[2020-08-17] MEDS ORDERED: Losartan 25 MG TAB PO SCH (09:00)
[2020-08-17] MEDS ORDERED: Amlodipine 10 MG TAB PO SCH (09:00)
[2020-08-17] MEDS ORDERED: buPROPion 75 MG TAB PO SCH (09:00)
[2020-08-17] MEDS ORDERED: Hydrochlorothiazide 25 MG TAB PO SCH (09:00)
[2020-08-17] MEDS ORDERED: Enoxaparin Sodium 40 MG/0.4 ML SYRINGE SC SCH (09:00)
[2020-08-17] MEDS ORDERED: Non-Formulary Item 1 EACH (Olmesartan Medoxomil [Olmesartan Medoxomil] 40 MG Tablet) PO SCH (09:00)
[2020-08-17] MEDS: Gabapentin 300 MG CAP PO SCH ×2 (09:35→13:48)
[2020-08-17] MEDS: Morphine 4 MG/ML VIAL SLOW IVP PRN ×2 (09:44→16:56)
[2020-08-17 10:59] LABS: Anion Gap 16 mmol/L (10-20); BUN (Urea Nitrogen) 16 mg/dL (9.8-20.1); Calc. Creatinine Clearance 95 mL/min (70-130); Calcium 9.4 mg/dL (7.8-10.44); Carbon Dioxide 28 mmol/L (23-31); Chloride 98 mmol/L (98-107); Estimated GFR-MDRD 56; Glucose 283 mg/dL (80-115); Potassium 3.7 mmol/L (3.5-5.1); Sodium 138 mmol/L (136-145)
--- NOTE | 2020-08-17 12:32 | PDOC.HOSPP ---
- Subjective Encounter Date: 08/17/20 Encounter Time: 12:31 Subjective: Ms. Hickey was seen today in follow-up of severe headache. She says it is better today, but not completely resolved. She notes some nasuea and blurred vision associated with it. She tells me she has had migraines before, but that was about 20 years ago, and she can not remember what they felt like. - Objective Vital Signs & Weight: Vital Signs (12 hours) Temp Pulse Resp BP BP Pulse Ox 08/17/20 12:07 97.4 F L 95 18 115/93 H 93 L 08/17/20 09:36 80 139/70 08/17/20 07:25 98 F 80 18 139/70 93 L 08/17/20 05:00 97.4 F L 83 20 148/107 H 94 L 08/17/20 02:54 84 162/90 H Weight Weight 241 lb 4.8 oz I&O: 08/16/20 08/17/20 08/18/20 06:59 06:59 06:59 Intake Total 600 Balance 600 Result Diagrams: 08/16/20 16:57 08/17/20 10:20 Additional Labs: Accuchecks 08/17/20 08/17/20 05:59 01:42 POC Glucose 239 H 264 H Hospitalist ROS - Medication Medications: Active Medications Generic Name Dose Route Start Last Admin Trade Name Freq PRN Reason Stop Dose Admin Acetaminophen/Aspirin/Caffeine 1 tab 08/17/20 00:09 08/17/20 09:35 Aspirin/Apap/Caffeine Tab (Excedrin Migraine) PO 1 tab Q6H PRN Administration Headache Amlodipine Besylate 10 mg 08/17/20 09:00 08/17/20 09:36 Amlodipine 10 Mg Tab PO 10 mg DAILY AJIT Administration Bupropion HCl 300 mg 08/17/20 09:00 08/17/20 09:34 Bupropion 75 Mg Tab PO 300 mg DAILY AJIT Administration Enoxaparin Sodium 40 mg 08/17/20 09:00 08/17/20 09:36 Enoxaparin Sodium 40 Mg/0.4 Ml Syringe SC 40 mg 0900 AJIT Administration Gabapentin 600 mg 08/17/20 09:00 08/17/20 09:35 Gabapentin 300 Mg Cap PO 600 mg TID AJIT Administration Hydrochlorothiazide 25 mg 08/17/20 09:00 08/17/20 09:35 Hydrochlorothiazide 25 Mg Tab PO 25 mg DAILY AJIT Administration Insulin Human Lispro 0 units 08/17/20 01:02 08/17/20 06:08 Humalog 300 Units/3 Ml Vial SC 4 unit .MODERATE SLIDING SC PRN Administration Moderate Correctional Scale Levothyroxine Sodium 200 mcg 08/17/20 06:00 08/17/20 06:08 Levothyroxine Sodium 100 Mcg Tab PO 200 mcg 0600 AJIT Administration Losartan Potassium 100 mg 08/17/20 09:00 08/17/20 09:35 Losartan 25 Mg Tab PO 100 mg DAILY AJIT Administration Morphine Sulfate 4 mg 08/17/20 01:09 08/17/20 09:44 Morphine 4 Mg/Ml Vial SLOW IVP 4 mg Q4H PRN Administration Severe Pain (7-10) - Exam Eye: PERRL, anicteric sclera Heart: RRR, no murmur, no gallops, no rubs, normal peripheral pulses Respiratory: CTAB, no wheezes, no rales, no ronchi, normal chest expansion, no tachypnea, normal percussion Gastrointestinal: soft, non-tender, non-distended, normal bowel sounds, no palpable masses, no hepatomegaly Extremities: no cyanosis, no edema Hosp A/P (1) Intractable headache Code(s): R51.9 - HEADACHE, UNSPECIFIED Status: Acute (2) Hypertensive urgency Code(s): I16.0 - HYPERTENSIVE URGENCY Status: Acute (3) Fibromyalgia Status: Acute (4) Hx of breast cancer Code(s): Z85.3 - PERSONAL HISTORY OF MALIGNANT NEOPLASM OF BREAST Status: Chronic (5) Hypothyroidism Code(s): E03.9 - HYPOTHYROIDISM, UNSPECIFIED Status: Chronic (6) S/P lumbar laminectomy Code(s): Z98.890 - OTHER SPECIFIED POSTPROCEDURAL STATES Status: Chronic - Plan * Hypertensive Urgency- likely related to the pain from the headache- blood pressure is much improved * Headache - She does not endorse any alarming symptoms. She says the headache started gradually, and she has not had any Neurological deficits, and her Neurological exam is normal . Will give a trial of Imitrex, and something for nausea. If she has improved, then will consider discharge home later today * Hypothyroidism- she is clinically euthyroid * Breast Cancer- remotes history * DM- re-start home medications * Fibromyalgia- stable
[2020-08-17] MEDS ORDERED: Promethazine 25 MG TAB PO PRN (12:39)
[2020-08-17] MEDS ORDERED: SUMAtriptan Succinate 50 MG TAB PO SCH (12:45)
[2020-08-17 14:55] LABS: SARS-CoV-2 MS2 Positive; SARS-CoV-2 N Gene Negative; SARS-CoV-2 S Gene Negative; SARS-CoV-2 by NAA Not Detected (NotDetected); SARS-CoV-2 orf1ab Negative
[2020-08-17 15:49] VITALS: BP 128/64; TEMP 98.1
--- NOTE | 2020-08-17 18:24 | PDOC.DS.DS ---
Provider - Provider Date of Admission: 08/16/20 21:30 Date of Discharge: 08/17/20 Admitting Provider: Jason Murphy Primary Care Physician: Gordon Hester MD Course - Hospital Course Hospital Course: Ms. Hickey is a 65-year-old female with a history of fibromyalgia narcolepsy diabetes mellitus and breast cancer. She also has a history of migraine headaches in the past. She presented to the emergency room with a very severe headache. She said that it started gradually over the course of the next few days. She said it was in the frontal part of her head and associated with some nausea. She was also found to have an extremely elevated blood pressure. For t his reason she was admitted to the hospital. CT scan of the brain was done which was negative for any acute intracranial abnormalities. She was monitored overnight and medication was given for her blood pressure. The following day her headache improved. She was given Imitrex as well as Phenergan for presumed migraine and her symptoms improved dramatically. For this reason we were able to discharge her home with close follow-up. And also her blood pressure normalized and it is felt that the elevated blood pressure was likely the result of the severe pain from the headache. Note there was no alarming features on her neurological exam. Resuscitation Status: 08/17/20 00:00 Resuscitation Status Routine Resuscitation Status: FULL: Full Resuscitation - Labs Lab Results: 08/16/20 16:57 08/17/20 10:20 Abnormal Lab Results - Last 48 hrs 08/16/20 16:57: Chloride 97 L, Creatinine 1.19 H, ALT 65 H, Globulin 4.0 H, Albumin/Globulin Ratio 1.1 L 08/16/20 16:57: MCH 32.1 H, Monocytes # 0.7 H 08/17/20 06:15: Urine Protein 30 A, Urine Glucose (UA) Greater than 1000 A, Urine Ketones 10 A, Urine Blood Trace A, Urine WBC 4-6 A, Urine Culture Reflexed Yes A - Physical Exam Vitals: Vital Signs (12 hours) Temp Pulse Resp BP BP Pulse Ox 08/17/20 15:47 98.1 F 88 14 128/64 93 L 08/17/20 12:07 97.4 F L 95 18 115/93 H 93 L 08/17/20 09:36 80 139/70 08/17/20 07:25 98 F 80 18 139/70 93 L Weight Admit Weight 241 lb 4.8 oz Weight 241 lb 4.8 oz Physical Exam: The patient was seen and examined on the day of discharge. Problem - Problem (1) Migraine Code(s): G43.909 - MIGRAINE, UNSP, NOT INTRACTABLE, WITHOUT STATUS MIGRAINOSUS Status: Acute (2) Intractable headache Code(s): R51.9 - HEADACHE, UNSPECIFIED Status: Acute (3) Hypertensive urgency Code(s): I16.0 - HYPERTENSIVE URGENCY Status: Acute (4) Fibromyalgia Status: Acute (5) Hx of breast cancer Code(s): Z85.3 - PERSONAL HISTORY OF MALIGNANT NEOPLASM OF BREAST Status: Chronic (6) Hypothyroidism Code(s): E03.9 - HYPOTHYROIDISM, UNSPECIFIED Status: Chronic (7) S/P lumbar laminectomy Code(s): Z98.890 - OTHER SPECIFIED POSTPROCEDURAL STATES Status: Chronic Plan - Discharge Medications Prescriptions: SUMAtriptan Succinate [Imitrex] 50 mg PO Q2HR PRN #20 tab PRN Reason: Headache Promethazine [Phenergan] 25 mg PO Q6H PRN #30 tab PRN Reason: Nausea/Vomiting Home Medications: Medication Instructions Recorded Confirmed Type Acetaminophen With Codeine 1 tab PO QID PRN 11/11/19 08/17/20 History [Acetaminophen/Codeine #4] Amlodipine [Norvasc] 10 mg PO DAILY 11/11/19 08/17/20 History Armodafinil 250 mg PO DAILY 11/11/19 08/17/20 History Biotin 1 mg PO DAILY 11/11/19 08/17/20 History Cholecalciferol (Vitamin D3) 1,000 unit PO DAILY 11/11/19 08/17/20 History [Vitamin D3] Colestipol HCl 1 gm PO BID-WM 11/11/19 08/17/20 History Cyanocobalamin (Vitamin B-12) 1 tab PO DAILY 11/11/19 08/17/20 History [Vitamin B-12] DULoxetine HCl [Duloxetine HCl] 120 mg PO HS 11/11/19 08/17/20 History Gabapentin 600 mg PO TID 11/11/19 08/17/20 History Hydrochlorothiazide 12.5 mg PO DAILY 11/11/19 08/17/20 History Levothyroxine Sodium 200 mcg PO DAILY 11/11/19 08/17/20 History Multivitamin [Multi-Vitamin Daily] 1 tab PO DAILY 11/11/19 08/17/20 History Olmesartan Medoxomil 40 mg PO DAILY 11/11/19 08/17/20 History [place]-3 Fatty Acids/Fish Oil [Fish 1 cap PO DAILY 11/11/19 08/17/20 History Oil 1,000 mg Capsule] Ubidecarenone [CoQ-10] 100 mg PO DAILY 11/11/19 08/17/20 History buPROPion [Wellbutrin] 300 mg PO DAILY 11/11/19 08/17/20 History glipiZIDE [Glipizide] 10 mg PO BID 11/11/19 08/17/20 History metFORMIN HCl [Metformin HCl ER] 1,000 mg PO BID 11/11/19 08/17/20 History tiZANidine HCl [Tizanidine HCl] 4 mg PO Q8HR PRN 11/11/19 08/17/20 History traMADol HCl [Tramadol HCl] 50 mg PO QID 11/11/19 08/17/20 History traZODone HCl [Trazodone HCl] 100 mg PO HS 11/11/19 08/17/20 History Promethazine [Phenergan] 25 mg PO Q6H PRN #30 tab 08/17/20 Rx SUMAtriptan Succinate [Imitrex] 50 mg PO Q2HR PRN #20 tab 08/17/20 Rx Allergies: Penicillins Allergy (Verified 08/16/20 23:58) Rash Bfmijzd-Xea-Eyo Reductase Inhibitor Allergy (Verified 08/16/20 23:58) muscle cramps - Discharge Instructions Discharge Instructions:: Follow-up with your Primary Care Provider in 1 week Activity:: Activity as Tolerated Nourishment:: Regular Diet - Follow up Plan Referrals: Gordon Hester MD [Primary Care Provider] - Disposition: HOME Quality - Care Measures CORE MEASURES:: N/A
[2020-08-17] MEDS ORDERED: glipiZIDE 5 MG TAB PO SCH (21:00)
[2020-08-17] MEDS ORDERED: FLU VACC QS2020-21(65YR UP)/PF 240 MCG/0.7 ML SYRINGE IM ONE (21:00)
[2020-08-17] MEDS ORDERED: metFORMIN 500 MG TAB PO SCH (21:00)
[2020-08-17] MEDS ORDERED: Insulin Glargine 10 UNITS in Pre-Filled Syringe 1 EACH SC SCH (21:00)
--- NOTE | 2020-08-25 15:24 | EKG ---
Test Reason : Blood Pressure : / mmHG Vent. Rate : 085 BPM Atrial Rate : 085 BPM P-R Int : 166 ms QRS Dur : 078 ms QT Int : 388 ms P-R-T Axes : 032 012 039 degrees QTc Int : 461 ms Sinus rhythm with occasional ventricular-paced complexes Abnormal ECG Confirmed by DAVY WATSON, FRANCI Hodgson ([id number]), desk editor TREVOR CROCKETT ([id number]) on 08/25/2020 3:24:21 PM Referred By: Confirmed By:FRANCI BHATTI MD
== END 2020-08-17 18:27 | disposition home or self-care (01) ==
LOC: ERS 14:26 → 2SE 21:30
PROVIDERS: ADMIT Internal Medicine; ATTEND Internal Medicine
DX: G43.909 Migraine, unspecified, not intractable, without status migrainosus (principal); I16.0 Hypertensive urgency; I10 Essential (primary) hypertension; M79.7 Fibromyalgia; E11.9 Type 2 diabetes mellitus without complications; E03.9 Hypothyroidism, unspecified; G47.419 Narcolepsy without cataplexy; F32.9 Major depressive disorder, single episode, unspecified; Z85.3 Personal history of malignant neoplasm of breast; Z79.84 Long term (current) use of oral hypoglycemic drugs; Z79.899 Other long term (current) drug therapy; Z88.0 Allergy status to penicillin; Z88.8 Allergy status to other drugs, medicaments and biological substances; Z98.890 Other specified postprocedural states; Z20.828 Contact with and (suspected) exposure to other viral communicable diseases
CPT/HCPCS: 70450; 71045; 80048; 80053; 81001; 82550; 82962; 83690; 84443; 84484 ×3; 85025; 87086; 93005; 96372; 96375; 96376; G0378 ×3; U0003; 36415; 36416; 87635; 96365; 96366; J1200; J1650; J1815; J2270; J2765; Q0162; Q0169

== ENCOUNTER 2020-09-14 13:50 | Outpatient (CLI) | payer MEDICARE ==
[~2020-09-14 13:50] MED LIST: Iopamidol-370 76% 500 ML 1 ML ONE
--- NOTE | 2020-09-14 14:52 | CT ---
CT ABDOMEN AND PELVIS WITH CONTRAST: 09/14/20 COMPARISON: 02/28/10. HISTORY: Left sided abdominal pain for six months. TECHNIQUE: Multiple contiguous axial images were obtained in a CT of the abdomen and pelvis with contrast. Sagit omid and coronal reformats were performed. FINDINGS: The patient is status post cholecystectomy. There is diffuse fatty infiltration of the liver. There is a 3.1 cm mass involving the medial limb of the right adrenal gland containing macroscopic fat. Previously, this was a solid mass without a larg e amount of macroscopic fat but may have had a small amount of macroscopic fat within it. The kidneys , left adrenal gland, spleen, and pancreas are unremarkable. No free air, free fluid, or stranding changes are seen in the abdomen or pelvis. There are scattered diverticula in the sigmoid colon. The small bowel and appendix are unremarkable. The reproductive org ans are unremarkable. No abdominal or pelvic lymphadenopathy is seen. Atherosclerotic calcifications are seen in the aorta. There are degenerative changes in the spine. There is a remote wedge compression fracture of L1. The visualized inferior thorax and abdominal wall soft tissues are unremarkable. IMPRESSION: 1. Diverticulosis. 2. Fatty liver. 3. Fat containing right adrenal lesion. Previously, this was a solid lesion but may have contain ed a few small foci of macroscopic fat. 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 POS: EAA
== END 2020-09-14 13:51 | disposition home or self-care (01) ==
LOC: BICCT 13:50
PROVIDERS: ATTEND Physician Assistant Medical
DX: K52.9 Noninfective gastroenteritis and colitis, unspecified (principal); E11.9 Type 2 diabetes mellitus without complications; R10.9 Unspecified abdominal pain; K76.0 Fatty (change of) liver, not elsewhere classified; K57.30 Diverticulosis of large intestine without perforation or abscess without bleeding; E27.8 Other specified disorders of adrenal gland
CPT/HCPCS: 74177; Q9967

== ENCOUNTER 2021-02-12 10:38 | Inpatient (IN) | payer MEDICARE ==
[~2021-02-12 10:38] MED LIST changes: +Aspirin Chewable 81 MG TAB ONE; +Heparin 10,000 UNITS/ 10 ML VIAL ONE; +Iopamidol 370 76% 100 ML VIAL ONE; +Iopamidol 370 76% 50 ML VIAL FS ONE; -Iopamidol-370 76% 500 ML 1 ML ONE; +Metoprolol Tartrate 5 MG/5 ML VIAL ONE
[2021-02-12] MEDS ORDERED: Heparin 10,000 UNITS/ 10 ML VIAL ONE ×2 (10:50→12:04)
[2021-02-12] MEDS ORDERED: Lidocaine 1% (PF) 30 ML VIAL ONE (10:50)
[2021-02-12] MEDS ORDERED: Morphine 4 MG/ML VIAL ONE ×2 (10:53→14:43)
[2021-02-12] MEDS ORDERED: Ondansetron PF 4 MG/2 ML Vial ONE (10:53)
[2021-02-12 10:57] LABS: #Basophils 0.1 thou/uL (0.0-0.2); #Eosinphils 0.1 thou/uL (0.0-0.7); #Lymphocytes 1.3 thou/uL (1.20-3.40); #Monocytes 0.4 thou/uL (0.11-0.59); #Neutrophils 9.4 thou/uL (1.40-6.50); %Basophils 0.7 % (0.0-1.0); %Eosinophils 0.5 % (0.0-10.0); %Lymphocytes 11.9 % (21.0-51.0); %Monocytes 3.2 % (0.0-10.0); %Neutrophils 83.6 % (42.0-75.0); Hemoglobin 14.7 g/dL (12.0-16.0); Mean Corpuscular HGB CONC 32.5 g/dL (32.0-36.0); Mean Corpuscular Hemoglobin 30.5 pg (27.0-31.0); Mean Platelet Volume 8.5 fL (7.4-10.4); Platelet Count 352 thou/uL (130-400); RBC Distribution Width 11.1 % (11.5-14.5); White Blood Cell (WBC) Count 11.2 thou/uL (4.8-10.8)
[2021-02-12] MEDS ORDERED: Midazolam HCl 2 mg/2 ml Vial ONE (11:13)
[2021-02-12] MEDS ORDERED: Fentanyl 100 MCG/2 ML VIAL ONE (11:13)
[2021-02-12 11:17] LABS: ALT (SGPT) 301 U/L (8-55); AST (SGOT) 135 U/L (5-34); Albumin 4.2 g/dL (3.4-4.8); Alkaline Phosphatase 144 U/L (40-110); Anion Gap 20 mmol/L (10-20); BUN (Urea Nitrogen) 25 mg/dL (9.8-20.1); Bilirubin, Total 0.5 mg/dL (0.2-1.2); CK (CPK) 359 U/L (29-168); Calc. Creatinine Clearance 0 mL/min (70-130); Calcium 10.9 mg/dL (7.8-10.44); Carbon Dioxide 25 mmol/L (23-31); Chloride 92 mmol/L (98-107); Globulin 4.3 g/dL (2.4-3.5); Glucose 399 mg/dL (80-115); Potassium 4.1 mmol/L (3.5-5.1); Protein, Total 8.5 g/dL (5.8-8.1); Sodium 133 mmol/L (136-145)
[2021-02-12] MEDS ORDERED: Aggrastat 12.5 MG/250 ML 250 ML ONE (11:24)
[2021-02-12] MEDS ORDERED: Adenosine 6 MG/2 ML VIAL ONE (11:27)
[2021-02-12] MEDS ORDERED: Clopidogrel Bisulfate 300 MG TAB ONE (11:37)
[2021-02-12] MEDS ORDERED: Nitroglycerin 100MG/250ML BOT 250 ML ONE (11:37)
[2021-02-12 11:59] LABS: CKMB 23.4 ng/mL (0-6.6)
[2021-02-12] MEDS ORDERED: Nitroglycerin 0.4 MG TAB (25 Tab Bottle) ONE (14:42)
[2021-02-12] MEDS ORDERED: Aggrastat 12.5 MG/250 ML 12.5 MG in Premix Bag 1 BAG IVPB SCH (15:45)
[2021-02-12 19:57] VITALS: BMI 36.1
[2021-02-12] MEDS: Sodium Chloride 0.9% 1,000 ML IV SCH (20:11)
[2021-02-12] MEDS: Morphine 4 MG/ML VIAL SLOW IVP PRN (20:12)
[2021-02-12] MEDS: Carvedilol 3.125 MG TAB PO SCH (20:12)
[2021-02-12 21:35] LABS: Troponin I 146.234 ng/mL (< 0.028)
[2021-02-13] MEDS ORDERED: hydrALAZINE 20 MG/ML VIAL SLOW IVP PRN (01:03)
[2021-02-13] MEDS ORDERED: Labetalol HCl 100 MG/20 ML VIAL SLOW IVP PRN (01:38)
[2021-02-13] MEDS: Morphine 4 MG/ML VIAL SLOW IVP PRN ×2 (01:49→06:36)
[2021-02-13] MEDS: Sodium Chloride 0.9% 1,000 ML IV SCH (01:51)
[2021-02-13 03:49] LABS: #Basophils 0.1 thou/uL (0.0-0.2); #Eosinphils 0.1 thou/uL (0.0-0.7); #Lymphocytes 1.8 thou/uL (1.20-3.40); #Monocytes 1.3 thou/uL (0.11-0.59); #Neutrophils 9.2 thou/uL (1.40-6.50); %Basophils 0.4 % (0.0-1.0); %Eosinophils 0.6 % (0.0-10.0); %Lymphocytes 14.4 % (21.0-51.0); %Monocytes 10.4 % (0.0-10.0); %Neutrophils 74.2 % (42.0-75.0); Hemoglobin 12.9 g/dL (12.0-16.0); Mean Corpuscular HGB CONC 32.4 g/dL (32.0-36.0); Mean Corpuscular Hemoglobin 30.7 pg (27.0-31.0); Mean Corpuscular Volume 94.8 fL (78.0-98.0); Mean Platelet Volume 8.5 fL (7.4-10.4); Platelet Count 328 thou/uL (130-400); RBC Distribution Width 11.2 % (11.5-14.5); Red Blood Cell (RBC) Count 4.19 mill/uL (4.20-5.40); White Blood Cell (WBC) Count 12.4 thou/uL (4.8-10.8)
[2021-02-13 04:08] LABS: ALT (SGPT) 328 U/L (8-55); AST (SGOT) 360 U/L (5-34); Albumin 3.4 g/dL (3.4-4.8); Alkaline Phosphatase 130 U/L (40-110); Anion Gap 15 mmol/L (10-20); BUN (Urea Nitrogen) 16 mg/dL (9.8-20.1); Bilirubin, Total 0.5 mg/dL (0.2-1.2); Calc. Creatinine Clearance 98 mL/min (70-130); Calcium 9.3 mg/dL (7.8-10.44); Carbon Dioxide 25 mmol/L (23-31); Chloride 98 mmol/L (98-107); Globulin 3.5 g/dL (2.4-3.5); Glucose 289 mg/dL (80-115); Potassium 3.9 mmol/L (3.5-5.1); Protein, Total 6.9 g/dL (5.8-8.1); Sodium 134 mmol/L (136-145)
[2021-02-13 05:12] LABS: Critical Call Chem Troponin I RESULT DECREASING
[2021-02-13 05:13] LABS: Troponin I 68.736 ng/mL (< 0.028)
[2021-02-13 07:52] LABS: Troponin I Greater than 45.000 ng/mL (< 0.028)
[2021-02-13] MEDS ORDERED: Furosemide 20 MG/2 ML VIAL SLOW IVP SCH (08:00)
[2021-02-13 08:20] LABS: Cardiac Risk 6.7 (Less than 4.5); Cholesterol 293 mg/dl (< 200 Desired); HDL Cholesterol 44 mg/dL (>60 Neg Risk); Triglycerides 720 mg/dL (Less than 150)
[2021-02-13] MEDS ORDERED: Aspirin Chewable 81 MG TAB PO SCH (09:00)
[2021-02-13] MEDS: Carvedilol 3.125 MG TAB PO SCH ×2 (09:49→20:29)
[2021-02-13] MEDS: Aspirin 81 mg Enteric Coated Tablet PO SCH (09:49)
[2021-02-13] MEDS: Clopidogrel Bisulfate 75 MG TAB PO SCH (09:49)
[2021-02-13] MEDS: Gabapentin 300 MG CAP PO SCH ×3 (09:50→20:30)
[2021-02-13] MEDS: Ezetimibe 10 MG TAB PO SCH (09:50)
[2021-02-13] MEDS ORDERED: traMADol HCl 50 MG TAB PO PRN (10:41)
[2021-02-13] MEDS ORDERED: Dextrose 5% in Water 1,000 ML IV PRN (10:42)
[2021-02-13] MEDS ORDERED: Dextrose 50% Abboject 50 ML SYRINGE SLOW IVP PRN (10:42)
[2021-02-13] MEDS: HumaLOG 300 UNITS/3 ML VIAL SC PRN ×2 (16:35→21:58)
[2021-02-13 17:03] LABS: SARS-CoV-2 NAA Rapid Test Not Detected (NotDetected)
[2021-02-13] MEDS: DULoxetine 30 MG CAP PO SCH (20:29)
[2021-02-13] MEDS: guaiFENesin 200 MG TAB PO PRN (20:31)
[2021-02-13] MEDS: traZODone HCl 50 MG TAB PO SCH (20:31)
[2021-02-13] MEDS: HYDROcodone/Acetaminophen 10/325 mg Tablet PO SCH (20:31)
[2021-02-13] MEDS: Acetaminophen 325 MG TAB PO PRN (20:31)
[2021-02-13] MEDS: Lantus 1000 UNITS/10 ML VIAL SC SCH (21:57)
[2021-02-14 04:36] LABS: Hemoglobin A1c 10.1 % (4.0-6.0)
[2021-02-14 04:41] LABS: ALT (SGPT) 203 U/L (8-55); AST (SGOT) 110 U/L (5-34); Albumin 3.4 g/dL (3.4-4.8); Alkaline Phosphatase 112 U/L (40-110); Anion Gap 12 mmol/L (10-20); BUN (Urea Nitrogen) 15 mg/dL (9.8-20.1); Bilirubin, Total 0.6 mg/dL (0.2-1.2); Calc. Creatinine Clearance 111 mL/min (70-130); Calcium 9.1 mg/dL (7.8-10.44); Carbon Dioxide 30 mmol/L (23-31); Chloride 98 mmol/L (98-107); Globulin 3.6 g/dL (2.4-3.5); Glucose 216 mg/dL (80-115); Potassium 3.3 mmol/L (3.5-5.1); Sodium 137 mmol/L (136-145)
[2021-02-14 04:59] LABS: Free T4 (Free Thyroxine) 0.94 ng/dL (0.70-1.48); Thyroid Stimulating Hormone 0.2523 uIU/mL (0.35-4.94)
[2021-02-14] MEDS: Levothyroxine 175 MCG TAB PO SCH (05:29)
[2021-02-14] MEDS: HumaLOG 300 UNITS/3 ML VIAL SC PRN ×3 (05:58→17:39)
[2021-02-14] MEDS ORDERED: Potassium Chloride 20 MEQ TAB PO SCH (06:30)
[2021-02-14] MEDS ORDERED: Electrolyte Replacement Protocol FS PRN (06:30)
[2021-02-14] MEDS: Lantus 1000 UNITS/10 ML VIAL SC SCH ×2 (07:58→21:19)
[2021-02-14] MEDS: Cyanocobalamin (Vitamin B-12) 1,000 MCG TAB PO SCH (07:59)
[2021-02-14] MEDS: Cholecalciferol 1,000 UNITS (25 MCG) TAB PO SCH (07:59)
[2021-02-14] MEDS: Clopidogrel Bisulfate 75 MG TAB PO SCH (07:59)
[2021-02-14] MEDS: DULoxetine 30 MG CAP PO SCH ×2 (07:59→21:16)
[2021-02-14] MEDS: Ezetimibe 10 MG TAB PO SCH (08:00)
[2021-02-14] MEDS: HYDROcodone/Acetaminophen 10/325 mg Tablet PO SCH ×2 (08:00→21:16)
[2021-02-14] MEDS: Aspirin 81 mg Enteric Coated Tablet PO SCH (08:00)
[2021-02-14] MEDS: Gabapentin 300 MG CAP PO SCH ×3 (08:00→21:15)
[2021-02-14] MEDS: buPROPion 75 MG TAB PO SCH (08:01)
[2021-02-14] MEDS: Carvedilol 3.125 MG TAB PO SCH ×2 (08:01→21:17)
[2021-02-14] MEDS: Morphine 4 MG/ML VIAL SLOW IVP PRN ×2 (13:30→18:48)
[2021-02-14] MEDS: Nitroglycerin 0.4 MG TAB (25 Tab Bottle) SL PRN ×3 (17:39→17:51)
[2021-02-14] MEDS: guaiFENesin 200 MG TAB PO PRN (21:15)
[2021-02-14] MEDS: traZODone HCl 50 MG TAB PO SCH (21:17)
[2021-02-15] MEDS: Acetaminophen 325 MG TAB PO PRN ×2 (03:27→18:10)
[2021-02-15 05:01] LABS: ALT (SGPT) 134 U/L (8-55); AST (SGOT) 47 U/L (5-34); Albumin 3.3 g/dL (3.4-4.8); Alkaline Phosphatase 102 U/L (40-110); Anion Gap 13 mmol/L (10-20); BUN (Urea Nitrogen) 17 mg/dL (9.8-20.1); Bilirubin, Total 0.5 mg/dL (0.2-1.2); Calc. Creatinine Clearance 101 mL/min (70-130); Calcium 9.2 mg/dL (7.8-10.44); Carbon Dioxide 28 mmol/L (23-31); Chloride 98 mmol/L (98-107); Globulin 3.7 g/dL (2.4-3.5); Glucose 231 mg/dL (80-115); Potassium 3.4 mmol/L (3.5-5.1); Sodium 136 mmol/L (136-145)
[2021-02-15] MEDS ORDERED: Potassium Chloride 20 MEQ TAB PO SCH (06:30)
[2021-02-15] MEDS: Levothyroxine 175 MCG TAB PO SCH (06:44)
[2021-02-15] MEDS: HumaLOG 300 UNITS/3 ML VIAL SC PRN ×3 (07:34→18:25)
[2021-02-15] MEDS: Aspirin 81 mg Enteric Coated Tablet PO SCH (09:16)
[2021-02-15] MEDS: Carvedilol 3.125 MG TAB PO SCH (09:17)
[2021-02-15] MEDS: Furosemide 20 MG TAB PO SCH (09:17)
[2021-02-15] MEDS: Ezetimibe 10 MG TAB PO SCH (09:17)
[2021-02-15] MEDS: Cholecalciferol 1,000 UNITS (25 MCG) TAB PO SCH (09:17)
[2021-02-15] MEDS: buPROPion 75 MG TAB PO SCH (09:17)
[2021-02-15] MEDS: Clopidogrel Bisulfate 75 MG TAB PO SCH (09:17)
[2021-02-15] MEDS: DULoxetine 30 MG CAP PO SCH ×2 (09:17→20:18)
[2021-02-15] MEDS: HYDROcodone/Acetaminophen 10/325 mg Tablet PO SCH ×2 (09:17→20:20)
[2021-02-15] MEDS: Cyanocobalamin (Vitamin B-12) 1,000 MCG TAB PO SCH (09:17)
[2021-02-15] MEDS: Gabapentin 300 MG CAP PO SCH ×3 (09:18→20:19)
[2021-02-15] MEDS: Lantus 1000 UNITS/10 ML VIAL SC SCH ×2 (09:19→20:24)
[2021-02-15] MEDS: Nateglinide 120 MG TAB PO SCH ×2 (11:35→18:25)
[2021-02-15] MEDS ORDERED: Colchicine 0.6 MG TAB PO SCH (15:00)
[2021-02-15] MEDS: Carvedilol 6.25 MG TAB PO SCH (18:10)
[2021-02-15] MEDS: guaiFENesin 200 MG TAB PO PRN (20:18)
[2021-02-15] MEDS: traZODone HCl 50 MG TAB PO SCH (20:19)
[2021-02-16 04:18] LABS: ALT (SGPT) 92 U/L (8-55); AST (SGOT) 32 U/L (5-34); Albumin 3.1 g/dL (3.4-4.8); Alkaline Phosphatase 90 U/L (40-110); Anion Gap 15 mmol/L (10-20); BUN (Urea Nitrogen) 17 mg/dL (9.8-20.1); Bilirubin, Total 0.4 mg/dL (0.2-1.2); Calc. Creatinine Clearance 111 mL/min (70-130); Calcium 9.2 mg/dL (7.8-10.44); Carbon Dioxide 22 mmol/L (23-31); Chloride 104 mmol/L (98-107); Globulin 3.6 g/dL (2.4-3.5); Glucose 185 mg/dL (80-115); Potassium 4.6 mmol/L (3.5-5.1); Protein, Total 6.7 g/dL (5.8-8.1); Sodium 136 mmol/L (136-145)
[2021-02-16] MEDS: Levothyroxine 175 MCG TAB PO SCH (05:11)
[2021-02-16] MEDS: HumaLOG 300 UNITS/3 ML VIAL SC PRN ×3 (06:17→17:30)
[2021-02-16] MEDS: Clopidogrel Bisulfate 75 MG TAB PO SCH (09:33)
[2021-02-16] MEDS: Cholecalciferol 1,000 UNITS (25 MCG) TAB PO SCH (09:33)
[2021-02-16] MEDS: Carvedilol 6.25 MG TAB PO SCH ×2 (09:33→15:54)
[2021-02-16] MEDS: Colchicine 0.6 MG TAB PO SCH ×2 (09:33→20:15)
[2021-02-16] MEDS: Aspirin 81 mg Enteric Coated Tablet PO SCH (09:33)
[2021-02-16] MEDS: Nateglinide 120 MG TAB PO SCH ×3 (09:33→15:55)
[2021-02-16] MEDS: DULoxetine 30 MG CAP PO SCH ×2 (09:34→20:14)
[2021-02-16] MEDS: Cyanocobalamin (Vitamin B-12) 1,000 MCG TAB PO SCH (09:34)
[2021-02-16] MEDS: HYDROcodone/Acetaminophen 10/325 mg Tablet PO SCH ×2 (09:35→20:16)
[2021-02-16] MEDS: Furosemide 20 MG TAB PO SCH (09:35)
[2021-02-16] MEDS: Ezetimibe 10 MG TAB PO SCH (09:35)
[2021-02-16] MEDS: Gabapentin 300 MG CAP PO SCH ×3 (09:35→20:15)
[2021-02-16] MEDS: buPROPion 75 MG TAB PO SCH (09:36)
[2021-02-16] MEDS: Lantus 1000 UNITS/10 ML VIAL SC SCH ×2 (09:37→21:06)
[2021-02-16] MEDS: Polyethylene Glycol 3350 17 GM Packet PO PRN (11:14)
[2021-02-16] MEDS: guaiFENesin 200 MG TAB PO PRN (20:14)
[2021-02-16] MEDS: traZODone HCl 50 MG TAB PO SCH (20:15)
[2021-02-17 04:34] LABS: ALT (SGPT) 74 U/L (8-55); AST (SGOT) 24 U/L (5-34); Albumin 3.1 g/dL (3.4-4.8); Alkaline Phosphatase 91 U/L (40-110); Anion Gap 14 mmol/L (10-20); BUN (Urea Nitrogen) 16 mg/dL (9.8-20.1); Bilirubin, Total 0.3 mg/dL (0.2-1.2); Calc. Creatinine Clearance 108 mL/min (70-130); Calcium 9.5 mg/dL (7.8-10.44); Carbon Dioxide 25 mmol/L (23-31); Chloride 103 mmol/L (98-107); Globulin 3.6 g/dL (2.4-3.5); Glucose 187 mg/dL (80-115); Potassium 4.2 mmol/L (3.5-5.1); Protein, Total 6.7 g/dL (5.8-8.1); Sodium 138 mmol/L (136-145)
[2021-02-17] MEDS: HumaLOG 300 UNITS/3 ML VIAL SC PRN ×4 (05:31→21:12)
[2021-02-17] MEDS: Levothyroxine 175 MCG TAB PO SCH (05:32)
[2021-02-17] MEDS: HYDROcodone/Acetaminophen 10/325 mg Tablet PO SCH ×2 (08:25→21:04)
[2021-02-17] MEDS: buPROPion 75 MG TAB PO SCH (08:25)
[2021-02-17] MEDS: Nateglinide 120 MG TAB PO SCH ×3 (08:26→17:04)
[2021-02-17] MEDS: Ezetimibe 10 MG TAB PO SCH (08:26)
[2021-02-17] MEDS: Gabapentin 300 MG CAP PO SCH ×3 (08:26→21:03)
[2021-02-17] MEDS: Clopidogrel Bisulfate 75 MG TAB PO SCH (08:27)
[2021-02-17] MEDS: Aspirin 81 mg Enteric Coated Tablet PO SCH (08:27)
[2021-02-17] MEDS: Colchicine 0.6 MG TAB PO SCH ×2 (08:27→21:05)
[2021-02-17] MEDS: Cholecalciferol 1,000 UNITS (25 MCG) TAB PO SCH (08:27)
[2021-02-17] MEDS: Carvedilol 6.25 MG TAB PO SCH ×2 (08:27→17:04)
[2021-02-17] MEDS: Cyanocobalamin (Vitamin B-12) 1,000 MCG TAB PO SCH (08:27)
[2021-02-17] MEDS: Furosemide 20 MG TAB PO SCH (08:27)
[2021-02-17] MEDS: Lantus 1000 UNITS/10 ML VIAL SC SCH ×2 (08:28→21:05)
[2021-02-17] MEDS: DULoxetine 30 MG CAP PO SCH ×2 (08:34→21:03)
[2021-02-17] MEDS: Polyethylene Glycol 3350 17 GM Packet PO PRN (21:01)
[2021-02-17] MEDS: guaiFENesin 200 MG TAB PO PRN (21:02)
[2021-02-17] MEDS: traZODone HCl 50 MG TAB PO SCH (21:05)
[2021-02-18 05:29] LABS: ALT (SGPT) 60 U/L (8-55); AST (SGOT) 28 U/L (5-34); Albumin 3.1 g/dL (3.4-4.8); Alkaline Phosphatase 103 U/L (40-110); Anion Gap 15 mmol/L (10-20); BUN (Urea Nitrogen) 19 mg/dL (9.8-20.1); Bilirubin, Total 0.2 mg/dL (0.2-1.2); Calc. Creatinine Clearance 94 mL/min (70-130); Calcium 9.6 mg/dL (7.8-10.44); Carbon Dioxide 24 mmol/L (23-31); Chloride 103 mmol/L (98-107); Globulin 3.6 g/dL (2.4-3.5); Glucose 287 mg/dL (80-115); Potassium 4.5 mmol/L (3.5-5.1); Protein, Total 6.7 g/dL (5.8-8.1); Sodium 137 mmol/L (136-145)
[2021-02-18] MEDS: HumaLOG 300 UNITS/3 ML VIAL SC PRN ×2 (06:41→12:17)
[2021-02-18] MEDS: Levothyroxine 175 MCG TAB PO SCH (06:41)
[2021-02-18] MEDS: Carvedilol 6.25 MG TAB PO SCH ×2 (08:06→16:16)
[2021-02-18] MEDS: Ezetimibe 10 MG TAB PO SCH (08:06)
[2021-02-18] MEDS: Gabapentin 300 MG CAP PO SCH ×2 (08:07→16:16)
[2021-02-18] MEDS: Aspirin 81 mg Enteric Coated Tablet PO SCH (08:07)
[2021-02-18] MEDS: Clopidogrel Bisulfate 75 MG TAB PO SCH (08:07)
[2021-02-18] MEDS: Cyanocobalamin (Vitamin B-12) 1,000 MCG TAB PO SCH (08:07)
[2021-02-18] MEDS: Cholecalciferol 1,000 UNITS (25 MCG) TAB PO SCH (08:08)
[2021-02-18] MEDS: HYDROcodone/Acetaminophen 10/325 mg Tablet PO SCH (08:08)
[2021-02-18] MEDS: Colchicine 0.6 MG TAB PO SCH (08:08)
[2021-02-18] MEDS: DULoxetine 30 MG CAP PO SCH (08:08)
[2021-02-18] MEDS: Furosemide 20 MG TAB PO SCH (08:08)
[2021-02-18] MEDS: buPROPion 75 MG TAB PO SCH (08:09)
[2021-02-18] MEDS: Nateglinide 120 MG TAB PO SCH ×3 (08:09→16:19)
[2021-02-18] MEDS: Lantus 1000 UNITS/10 ML VIAL SC SCH (08:10)
[2021-02-18] MEDS: guaiFENesin 200 MG TAB PO PRN (08:18)
[2021-02-18] MEDS: Acetaminophen 325 MG TAB PO PRN (09:47)
[2021-02-18 16:16] VITALS: BP 110/64; TEMP 98.2
== END 2021-02-18 17:50 | disposition home or self-care (01) | DRG 248 ==
LOC: ERS 10:38 → CCL 11:06 → CCU 11:30 → 2NO 02-14 13:15
PROVIDERS: ADMIT Internal Medicine Cardiovascular Disease; ATTEND Internal Medicine
PROC: 4A023N7 Measurement of Cardiac Sampling and Pressure, Left Heart, Percutaneous Approach (ICD-10-PCS; principal; 2021-02-12)
PROC: 02703GZ Dilation of Coronary Artery, One Artery with Four or More Intraluminal Devices, Percutaneous Approach (ICD-10-PCS; 2021-02-12)
PROC: B2111ZZ Fluoroscopy of Multiple Coronary Arteries using Low Osmolar Contrast (ICD-10-PCS; 2021-02-12)
DX: I21.02 ST elevation (STEMI) myocardial infarction involving left anterior descending coronary artery (principal); I50.21 Acute systolic (congestive) heart failure; I10 Essential (primary) hypertension; E11.9 Type 2 diabetes mellitus without complications; E78.00 Pure hypercholesterolemia, unspecified; G47.33 Obstructive sleep apnea (adult) (pediatric); Z85.3 Personal history of malignant neoplasm of breast; Z91.19 Patient's noncompliance with other medical treatment and regimen; Z88.0 Allergy status to penicillin; Z82.49 Family history of ischemic heart disease and other diseases of the circulatory system; Z68.37 Body mass index [BMI] 37.0-37.9, adult; E03.9 Hypothyroidism, unspecified; E66.01 Morbid (severe) obesity due to excess calories; F41.9 Anxiety disorder, unspecified; M79.7 Fibromyalgia; Z90.49 Acquired absence of other specified parts of digestive tract; I25.10 Atherosclerotic heart disease of native coronary artery without angina pectoris
CPT/HCPCS: 0240U; 36415; 36416; 71045; 80053; 80061; 82550; 82553; 83036; 84439; 84443; 84481; 84484; 85025; 85347; 92928; 93005; 93010; 93306; 93454; 93798; 96374; 96375; 97139; 99152; 99153; C1876; C9600; J0153; J1644; J1815; J1940; J2001; J2250; J2270; J2405; J3010; J3246; Q9967; U0002

== ENCOUNTER 2021-03-28 17:02 | Outpatient (CLI) | payer MEDICARE ==
[2021-03-28 18:58] LABS: Hemoglobin 13.7 g/dL (12.0-15.5); Mean Corpuscular Hemoglobin 30.9 pg (27.0-33.0); Mean Corpuscular Volume 96.6 fl (81.6-98.3); Mean Platelet Volume 10.4 fl (7.4-10.4); Platelet Count 403 10x3/uL (150-450); RBC Distribution Width 13.5 % (11.5-14.5); Red Blood Cell (RBC) Count 4.43 10x6/uL (3.90-5.03); White Blood Cell (WBC) Count 8.2 10x3/uL (3.5-10.5)
[2021-03-28 19:05] LABS: Anion Gap 16 mmol/L (10-20); BUN (Urea Nitrogen) 26 mg/dL (9.8-20.1); Calc. Creatinine Clearance 0 mL/min (70-130); Calcium 10.1 mg/dL (7.8-10.44); Carbon Dioxide 24 mmol/L (23-31); Chloride 102 mmol/L (98-107); Glucose 82 mg/dL (80-115); Potassium 4.7 mmol/L (3.5-5.1); Sodium 137 mmol/L (136-145)
== END 2021-03-28 17:03 | disposition home or self-care (01) ==
LOC: LABBT 17:02
PROVIDERS: ATTEND Thoracic Surgery (Cardiothoracic Vascular Surgery)
DX: Z01.812 Encounter for preprocedural laboratory examination (principal); I25.10 Atherosclerotic heart disease of native coronary artery without angina pectoris
CPT/HCPCS: 77063; 77067; 80048; 85027; 86850; 86900; 86901

== ENCOUNTER 2021-03-28 17:15 | Inpatient (IN) | payer MEDICARE ==
[2021-03-28 18:58] LABS: Hemoglobin 13.7 g/dL (12.0-15.5); Mean Corpuscular Hemoglobin 30.9 pg (27.0-33.0); Mean Corpuscular Volume 96.6 fl (81.6-98.3); Mean Platelet Volume 10.4 fl (7.4-10.4); Platelet Count 403 10x3/uL (150-450); RBC Distribution Width 13.5 % (11.5-14.5); Red Blood Cell (RBC) Count 4.43 10x6/uL (3.90-5.03); White Blood Cell (WBC) Count 8.2 10x3/uL (3.5-10.5)
[2021-03-28 19:05] LABS: Anion Gap 16 mmol/L (10-20); BUN (Urea Nitrogen) 26 mg/dL (9.8-20.1); Calc. Creatinine Clearance 0 mL/min (70-130); Calcium 10.1 mg/dL (7.8-10.44); Carbon Dioxide 24 mmol/L (23-31); Chloride 102 mmol/L (98-107); Glucose 82 mg/dL (80-115); Potassium 4.7 mmol/L (3.5-5.1); Sodium 137 mmol/L (136-145)
[2021-03-29 10:25] VITALS: BMI 35.4
[2021-04-01] MEDS ORDERED: Bupivacaine PF 0.5% 30 ML VIAL ONE (06:42)
[2021-04-01] MEDS ORDERED: Dexamethasone 4 mg/ml Vial ONE (06:42)
[2021-04-01] MEDS ORDERED: Albumin 5% 500 ML ONE (06:42)
[2021-04-01] MEDS ORDERED: EPINEPHrine 1 MG/ML AMP ONE (06:42)
[2021-04-01] MEDS ORDERED: Clindamycin/D5W 900 mg/50 ml Premix Bag ONE (06:45)
[2021-04-01] MEDS ORDERED: Midazolam HCl 5 mg/5 ml Vial ONE (06:57)
[2021-04-01] MEDS ORDERED: Dexmedetomidine 200 MCG/2 ML VIAL ONE (06:57)
[2021-04-01] MEDS ORDERED: Fentanyl 100 MCG/2 ML VIAL ONE (06:57)
[2021-04-01] MEDS ORDERED: Vancomycin 1.5 GRAM/300 ML BAG 1.5 GM in Premix Bag 1 BAG IVPB SCH (07:00)
[2021-04-01] MEDS ORDERED: Heparin 10,000 UNITS/1 ML VIAL 30,000 UNITS in Sodium Chloride 0.9% 1,000 ML FS SCH (07:00)
[2021-04-01] MEDS ORDERED: Clindamycin/D5W 900 MG in Premix Bag 1 BAG IVPB SCH (07:00)
[2021-04-01] MEDS ORDERED: Sodium Chloride 0.9% 20 ML ONE (07:09)
[2021-04-01] MEDS ORDERED: Midazolam HCl 2 mg/2 ml Vial ONE (07:16)
[2021-04-01] MEDS ORDERED: PROPOFOL 200 MG/20 ML VIAL ONE (07:48)
[2021-04-01] MEDS ORDERED: Dexamethasone 20 MG/5 ML VIAL ONE (07:48)
[2021-04-01] MEDS ORDERED: Cardioplegic Soln 1,000 ML BAG ONE (07:48)
[2021-04-01] MEDS ORDERED: Magnesium Sulfate 1 GM/2 ML VIAL ONE (07:48)
[2021-04-01] MEDS ORDERED: Nitroglycerin 50 MG/250 ML BOT ONE (07:48)
[2021-04-01] MEDS ORDERED: Glycopyrrolate 0.2 MG/ML 5 ML SYRINGE ONE (07:48)
[2021-04-01] MEDS ORDERED: Protamine Sulfate 250 MG/25 ML VIAL ONE (07:48)
[2021-04-01] MEDS ORDERED: Heparin 30,000 units/30 ml VIAL ONE (07:48)
[2021-04-01] MEDS ORDERED: Vecuronium 10 MG VIAL ONE (07:48)
[2021-04-01] MEDS ORDERED: Potassium Chloride 60 MEQ/30 ML VIAL ONE (07:48)
[2021-04-01] MEDS ORDERED: Papaverine 60 MG/2 ML VIAL ONE (07:48)
[2021-04-01] MEDS ORDERED: Lidocaine 1% PF 5 ML VIAL ONE (07:48)
[2021-04-01] MEDS ORDERED: Lidocaine 2% PF 100 mg/5 ml Syringe ONE (07:48)
[2021-04-01] MEDS ORDERED: Heparin 5,000 UNITS/ML VIAL ONE (07:48)
[2021-04-01] MEDS ORDERED: Sodium Bicarb 50 MEQ/50 ML Abboject 8.4% SYRINGE ONE (07:48)
[2021-04-01] MEDS ORDERED: Norepinephrine 4 MG/4 ML VIAL ONE (07:48)
[2021-04-01] MEDS ORDERED: Mannitol 12.5 GM/50 ML ONE (07:48)
[2021-04-01] MEDS ORDERED: Calcium Chloride 1 GM/10 ML Abboject SYRINGE ONE (07:48)
[2021-04-01] MEDS ORDERED: Aminocaproic Acid 5 GM/20 ML VIAL ONE (07:48)
[2021-04-01] MEDS ORDERED: Thrombin 5000 UNITS/5 ML VIAL ONE (07:48)
[2021-04-01] MEDS ORDERED: Ondansetron PF 4 MG/2 ML Vial ONE (07:48)
[2021-04-01] MEDS ORDERED: Insulin Regular 300 UNITS/3 ML VIAL ONE (08:25)
[2021-04-01] MEDS ORDERED: Milrinone 10 MG/10 ML VIAL ONE (08:25)
[2021-04-01 11:04] LABS: Actual Bicarbonate (HCO3a) 23.3 mEq/L (22-28); Base Excess (BEa) -1.1 mEq/L (-2.0 to +3.0); CO2 Tension 37.1 mmHg (35.0-45.0); Calcium, Ionized (arterial) 1.14 mmol/L (1.12-1.30); Carboxyhemoglobin (COHb) 0.4 gm% (0.0-3.0); Hemoglobin (Hb) 9.3 g/dL (12.0-16.0); O2 Tension (PaO2), arterial 283.9 mmHg (> 80.0); Potassium - ABG Lab 3.85 mmol/L (3.70-5.30); Puncture Site Arterial Line; pH, Arterial 7.42 (7.35-7.45)
[2021-04-01] MEDS ORDERED: Bisacodyl 10 MG SUPP PR PRN (11:16)
[2021-04-01] MEDS ORDERED: Mag-Al 1200 mg/1200 mg/30 ML UDCUP PO PRN (11:16)
[2021-04-01] MEDS ORDERED: Morphine 2 MG/ML VIAL SLOW IVP PRN (11:16)
[2021-04-01] MEDS ORDERED: Bisacodyl 5 MG TAB PO PRN (11:16)
[2021-04-01] MEDS ORDERED: niCARdipine 25 MG in Sodium Chloride 0.9% 250 ML 250 ML IVPB PRN (11:16)
[2021-04-01] MEDS ORDERED: Guaifenesin DM 100-10/5 ML UDCUP PO PRN (11:16)
[2021-04-01] MEDS ORDERED: Promethazine HCl 25 MG/ML VIAL IM PRN (11:16)
[2021-04-01] MEDS ORDERED: Potassium Chloride 20 MEQ/100 ML PREMIX BAG IVPB PRN (11:16)
[2021-04-01] MEDS ORDERED: Magnesium 2 GM/50 ML 2 GM in Premix Bag 1 BAG IVPB SCH (11:16)
[2021-04-01] MEDS ORDERED: Norepinephrine 8 MG/0.9% NS 250 ML IVPB PRN (11:16)
[2021-04-01] MEDS ORDERED: Ondansetron PF 4 MG/2 ML Vial IVP PRN (11:16)
[2021-04-01] MEDS ORDERED: Hetastarch 6% 500 ML 500 ML IVPB PRN (11:16)
[2021-04-01] MEDS ORDERED: Acetaminophen 325 MG TAB PO PRN (11:16)
[2021-04-01] MEDS ORDERED: D5 1/2 NS w/20 mEq KCL 1,000 ML IV SCH (11:16)
[2021-04-01] MEDS ORDERED: Post-Op Insulin Drip Protocol IVPB ONE (11:16)
[2021-04-01] MEDS ORDERED: Nitroglycerin 50 MG/250 ML BOT 250 ML IVPB PRN (11:16)
[2021-04-01] MEDS ORDERED: Albumin 5% 0 ML ONE (11:23)
[2021-04-01] MEDS ORDERED: Insulin Regular 300 UNITS/3 ML VIAL SC PRN (11:45)
[2021-04-01] MEDS ORDERED: Dextrose 50% Abboject 50 ML SYRINGE SLOW IVP PRN (11:45)
[2021-04-01] MEDS ORDERED: Dextrose 5% in Water 1,000 ML IV PRN (11:45)
[2021-04-01] MEDS: Clindamycin/D5W 900 MG in Premix Bag 1 BAG IVPB SCH ×2 (12:03→17:55)
[2021-04-01] MEDS: Ketorolac Tromethamine 30 MG/ML VIAL IVP SCH ×2 (12:04→17:55)
[2021-04-01] MEDS: HUMULIN R 100 UNITS in Sodium Chloride 0.9% 100 ML IVPB SCH (12:19)
[2021-04-01] MEDS: Fentanyl 100 MCG/2 ML VIAL SLOW IVP PRN ×5 (12:19→22:11)
[2021-04-01 12:20] LABS: Hemoglobin 11.7 g/dL (12.0-16.0); Mean Corpuscular HGB CONC 31.5 g/dL (32.0-36.0); Mean Corpuscular Hemoglobin 31.3 pg (27.0-31.0); Mean Corpuscular Volume 99.3 fL (78.0-98.0); Mean Platelet Volume 7.7 fL (7.4-10.4); Platelet Count 301 thou/uL (130-400); RBC Distribution Width 12.1 % (11.5-14.5); Red Blood Cell (RBC) Count 3.76 mill/uL (4.20-5.40); White Blood Cell (WBC) Count 21.8 thou/uL (4.8-10.8)
[2021-04-01 12:29] LABS: INR-International Normal Ratio 1.2; Prothrombin Time 15.1 sec (12.0-14.7)
[2021-04-01 12:30] LABS: PTT 32.7 sec (22.9-36.1)
[2021-04-01 12:41] LABS: Anion Gap 15 mmol/L (10-20); BUN (Urea Nitrogen) 17 mg/dL (9.8-20.1); Calc. Creatinine Clearance 98 mL/min (70-130); Calcium 8.5 mg/dL (7.8-10.44); Carbon Dioxide 20 mmol/L (23-31); Chloride 108 mmol/L (98-107); Glucose 187 mg/dL (80-115); Potassium 4.1 mmol/L (3.5-5.1); Sodium 139 mmol/L (136-145)
[2021-04-01 13:00] LABS: Band 12 % (5-11); Eosinophils 1 % (0-10); Lymphocytes 8 % (21-51); MDiff Complete? YES; Monocytes 8 % (0-10); Neutrophil 70 % (42-75); Platelet Morphology Comment Appears Adequate; Polychromasia SLIGHT = 2-3 cells (100X) (0-2/hpf); Reactive Lymphocytes 1 % (0-10)
[2021-04-01] MEDS: Gabapentin 300 MG CAP PO SCH ×2 (15:04→20:00)
[2021-04-01] MEDS: HYDROcodone/Acetaminophen 5/325 mg Tablet PO PRN ×3 (15:05→22:51)
[2021-04-01 16:46] LABS: Hemoglobin 12.5 g/dL (12.0-16.0)
[2021-04-01 17:31] LABS: Potassium 4.2 mmol/L (3.5-5.1)
[2021-04-01] MEDS: Colchicine 0.6 MG TAB PO SCH (20:01)
[2021-04-01] MEDS: Vancomycin HCl 1.5 GM in Sodium Chloride 0.9% 250 ML 300 ML IVPB SCH (20:01)
[2021-04-01] MEDS ORDERED: Famotidine/PF 20 mg/2ml Vial SLOW IVP SCH (21:00)
[2021-04-02] MEDS: Ketorolac Tromethamine 30 MG/ML VIAL IVP SCH ×4 (00:07→17:34)
[2021-04-02] MEDS: Fentanyl 100 MCG/2 ML VIAL SLOW IVP PRN ×7 (00:08→22:55)
[2021-04-02] MEDS: Clindamycin/D5W 900 MG in Premix Bag 1 BAG IVPB SCH ×2 (01:08→08:00)
[2021-04-02] MEDS: HYDROcodone/Acetaminophen 5/325 mg Tablet PO PRN ×5 (02:57→22:57)
[2021-04-02 05:09] LABS: #Monocytes 1.8 thou/uL (0.11-0.59); #Neutrophils 11.5 thou/uL (1.40-6.50); %Basophils 0.1 % (0.0-1.0); %Eosinophils 0.2 % (0.0-10.0); %Lymphocytes 13.3 % (21.0-51.0); %Monocytes 11.5 % (0.0-10.0); Hemoglobin 10.9 g/dL (12.0-16.0); Mean Corpuscular HGB CONC 32.1 g/dL (32.0-36.0); Mean Corpuscular Hemoglobin 31.9 pg (27.0-31.0); Mean Corpuscular Volume 99.4 fL (78.0-98.0); Mean Platelet Volume 8.2 fL (7.4-10.4); Platelet Count 299 thou/uL (130-400); RBC Distribution Width 12.3 % (11.5-14.5); White Blood Cell (WBC) Count 15.3 thou/uL (4.8-10.8)
[2021-04-02 05:32] LABS: Anion Gap 14 mmol/L (10-20); BUN (Urea Nitrogen) 17 mg/dL (9.8-20.1); Calc. Creatinine Clearance 75 mL/min (70-130); Calcium 8.2 mg/dL (7.8-10.44); Carbon Dioxide 22 mmol/L (23-31); Cardiac Risk 2.3 (Less than 4.5); Chloride 104 mmol/L (98-107); Cholesterol 78 mg/dl (< 200 Desired); Glucose 188 mg/dL (80-115); HDL Cholesterol 34 mg/dL (>60 Neg Risk); LDL Cholesterol, Calculated 8 mg/dL; Potassium 3.9 mmol/L (3.5-5.1); Sodium 136 mmol/L (136-145); Triglycerides 179 mg/dL (Less than 150)
[2021-04-02] MEDS: HUMULIN R 100 UNITS in Sodium Chloride 0.9% 100 ML IVPB SCH (06:05)
[2021-04-02] MEDS: Levothyroxine 175 MCG TAB PO SCH (06:06)
[2021-04-02] MEDS ORDERED: Mineral Oil ENEMA PR PRN (06:50)
[2021-04-02] MEDS ORDERED: Guaifenesin DM 100-10/5 ML UDCUP PO PRN (06:50)
[2021-04-02] MEDS ORDERED: Mag-Al 1200 mg/1200 mg/30 ML UDCUP PO PRN (06:50)
[2021-04-02] MEDS ORDERED: Milk Of Magnesia 30 ML UDCUP PO PRN (06:50)
[2021-04-02] MEDS ORDERED: Nitroglycerin 0.4 MG TAB (25 Tab Bottle) SL PRN (06:50)
[2021-04-02] MEDS ORDERED: diphenhydrAMINE 25 MG CAP PO PRN (06:50)
[2021-04-02] MEDS ORDERED: Zolpidem Tartrate 5 MG TAB PO PRN (06:50)
[2021-04-02] MEDS ORDERED: Bisacodyl 10 MG SUPP PR PRN (06:50)
[2021-04-02] MEDS ORDERED: BUPRENORPHINE 10 MCG TOP SCH (06:50)
[2021-04-02] MEDS: Aspirin 325 MG TAB PO SCH (07:57)
[2021-04-02] MEDS: Furosemide 40 MG TAB PO SCH (07:57)
[2021-04-02] MEDS: Ezetimibe 10 MG TAB PO SCH (07:58)
[2021-04-02] MEDS: Cholecalciferol 1,000 UNITS (25 MCG) TAB PO SCH (07:58)
[2021-04-02] MEDS: Famotidine 20 MG TAB PO SCH ×2 (07:58→23:31)
[2021-04-02] MEDS: Colchicine 0.6 MG TAB PO SCH ×2 (07:58→23:31)
[2021-04-02] MEDS: Cyanocobalamin (Vitamin B-12) 1,000 MCG TAB PO SCH (07:58)
[2021-04-02] MEDS: Gabapentin 300 MG CAP PO SCH ×3 (07:59→23:29)
[2021-04-02] MEDS: Potassium Chloride 20 MEQ TAB PO SCH (07:59)
[2021-04-02] MEDS: Multivit, Therapeutic 1 TAB PO SCH (07:59)
[2021-04-02] MEDS: Magnesium 2 GM/50 ML 2 GM in Premix Bag 1 BAG IVPB SCH (07:59)
[2021-04-02] MEDS: Empagliflozin 10 MG TAB PO SCH (08:00)
[2021-04-02] MEDS: Bupropion 150 MG XL TAB PO SCH (08:18)
[2021-04-02] MEDS ORDERED: Lantus 1000 UNITS/10 ML VIAL SC SCH ×2 (09:00→21:00)
[2021-04-02] MEDS ORDERED: buPROPion 75 MG TAB PO SCH (09:00)
[2021-04-02] MEDS ORDERED: Vancomycin HCl 1.5 GM in Sodium Chloride 0.9% 250 ML 300 ML IVPB SCH (09:45)
[2021-04-02] MEDS: Vancomycin HCl 1.5 GM in Sodium Chloride 0.9% 250 ML 300 ML IVPB SCH (09:50)
[2021-04-02] MEDS: Insulin Regular 300 UNITS/3 ML VIAL SC PRN ×2 (12:21→17:38)
[2021-04-02] MEDS: Bisacodyl 5 MG TAB PO PRN (17:46)
[2021-04-03] MEDS: Ketorolac Tromethamine 30 MG/ML VIAL IVP SCH ×5 (00:16→23:24)
[2021-04-03] MEDS: Fentanyl 100 MCG/2 ML VIAL SLOW IVP PRN ×3 (01:54→09:23)
[2021-04-03] MEDS: HYDROcodone/Acetaminophen 5/325 mg Tablet PO PRN ×3 (03:16→21:04)
[2021-04-03] MEDS: Levothyroxine 175 MCG TAB PO SCH (04:27)
[2021-04-03] MEDS ORDERED: Lantus 1000 UNITS/10 ML VIAL SC SCH ×2 (09:00→21:00)
[2021-04-03] MEDS: Potassium Chloride 20 MEQ TAB PO SCH (09:17)
[2021-04-03] MEDS: Cholecalciferol 1,000 UNITS (25 MCG) TAB PO SCH (09:18)
[2021-04-03] MEDS: Aspirin 325 MG TAB PO SCH (09:18)
[2021-04-03] MEDS: Bupropion 150 MG XL TAB PO SCH (09:18)
[2021-04-03] MEDS: Cyanocobalamin (Vitamin B-12) 1,000 MCG TAB PO SCH (09:18)
[2021-04-03] MEDS: Ezetimibe 10 MG TAB PO SCH (09:19)
[2021-04-03] MEDS: Empagliflozin 10 MG TAB PO SCH (09:19)
[2021-04-03] MEDS: Multivit, Therapeutic 1 TAB PO SCH (09:19)
[2021-04-03] MEDS: Colchicine 0.6 MG TAB PO SCH ×2 (09:19→20:53)
[2021-04-03] MEDS: Gabapentin 300 MG CAP PO SCH ×3 (09:19→20:53)
[2021-04-03] MEDS: Docusate 100 MG CAP PO SCH ×2 (09:19→20:54)
[2021-04-03] MEDS: Famotidine 20 MG TAB PO SCH ×2 (09:19→20:54)
[2021-04-03] MEDS: Furosemide 40 MG TAB PO SCH (09:20)
[2021-04-03] MEDS: Carvedilol 6.25 MG TAB PO SCH ×2 (09:20→20:54)
[2021-04-03] MEDS: Magnesium 2 GM/50 ML 2 GM in Premix Bag 1 BAG IVPB SCH (09:22)
[2021-04-03] MEDS: Amiodarone 450 MG, Admixture Fee 1 EACH in Dextrose 5% in Water 250 ML IVPB SCH ×2 (09:25→15:18)
[2021-04-03] MEDS: Insulin Regular 300 UNITS/3 ML VIAL SC PRN (18:07)
[2021-04-03] MEDS: traZODone HCl 50 MG TAB PO SCH (20:54)
[2021-04-04] MEDS: HYDROcodone/Acetaminophen 5/325 mg Tablet PO PRN ×5 (01:57→21:41)
[2021-04-04] MEDS: Amiodarone 450 MG, Admixture Fee 1 EACH in Dextrose 5% in Water 250 ML IVPB SCH (02:20)
[2021-04-04] MEDS: Ketorolac Tromethamine 30 MG/ML VIAL IVP SCH ×2 (05:36→12:11)
[2021-04-04] MEDS: Levothyroxine 175 MCG TAB PO SCH (05:37)
[2021-04-04] MEDS ORDERED: Lantus 1000 UNITS/10 ML VIAL SC SCH ×2 (06:15→21:00)
[2021-04-04] MEDS: Bisacodyl 5 MG TAB PO PRN (09:42)
[2021-04-04] MEDS: Carvedilol 6.25 MG TAB PO SCH ×2 (09:43→19:57)
[2021-04-04] MEDS: Gabapentin 300 MG CAP PO SCH ×3 (09:43→19:57)
[2021-04-04] MEDS: Cholecalciferol 1,000 UNITS (25 MCG) TAB PO SCH (09:44)
[2021-04-04] MEDS: Aspirin 325 MG TAB PO SCH (09:44)
[2021-04-04] MEDS: Potassium Chloride 20 MEQ TAB PO SCH (09:44)
[2021-04-04] MEDS: Bupropion 150 MG XL TAB PO SCH (09:44)
[2021-04-04] MEDS: Cyanocobalamin (Vitamin B-12) 1,000 MCG TAB PO SCH (09:44)
[2021-04-04] MEDS: Furosemide 40 MG TAB PO SCH (09:45)
[2021-04-04] MEDS: Famotidine 20 MG TAB PO SCH ×2 (09:45→19:57)
[2021-04-04] MEDS: Multivit, Therapeutic 1 TAB PO SCH (09:45)
[2021-04-04] MEDS: Ezetimibe 10 MG TAB PO SCH (09:45)
[2021-04-04] MEDS: Empagliflozin 10 MG TAB PO SCH (09:45)
[2021-04-04] MEDS: Colchicine 0.6 MG TAB PO SCH ×2 (09:45→19:58)
[2021-04-04] MEDS: Docusate 100 MG CAP PO SCH ×2 (09:45→19:56)
[2021-04-04] MEDS ORDERED: Amiodarone 200 MG TAB PO SCH (11:15)
[2021-04-04] MEDS: Insulin Regular 300 UNITS/3 ML VIAL SC PRN ×2 (14:54→18:03)
[2021-04-04] MEDS: traZODone HCl 50 MG TAB PO SCH (19:57)
[2021-04-04] MEDS: Amiodarone 200 MG TAB PO SCH (21:38)
[2021-04-05] MEDS: HYDROcodone/Acetaminophen 5/325 mg Tablet PO PRN ×3 (01:48→09:57)
[2021-04-05] MEDS: Levothyroxine 175 MCG TAB PO SCH (05:54)
[2021-04-05 07:39] VITALS: TEMP 97.9
[2021-04-05] MEDS: Gabapentin 300 MG CAP PO SCH (08:51)
[2021-04-05] MEDS: Bupropion 150 MG XL TAB PO SCH (08:51)
[2021-04-05] MEDS: Aspirin 325 MG TAB PO SCH (08:51)
[2021-04-05] MEDS: Cyanocobalamin (Vitamin B-12) 1,000 MCG TAB PO SCH (08:52)
[2021-04-05] MEDS: Docusate 100 MG CAP PO SCH (08:52)
[2021-04-05] MEDS: Cholecalciferol 1,000 UNITS (25 MCG) TAB PO SCH (08:52)
[2021-04-05] MEDS: Carvedilol 6.25 MG TAB PO SCH (08:52)
[2021-04-05] MEDS: Amiodarone 200 MG TAB PO SCH (08:52)
[2021-04-05] MEDS: Multivit, Therapeutic 1 TAB PO SCH (08:52)
[2021-04-05] MEDS: Colchicine 0.6 MG TAB PO SCH (08:53)
[2021-04-05] MEDS: Furosemide 40 MG TAB PO SCH (08:53)
[2021-04-05] MEDS: Potassium Chloride 20 MEQ TAB PO SCH (08:53)
[2021-04-05] MEDS: Ezetimibe 10 MG TAB PO SCH (08:53)
[2021-04-05] MEDS: Famotidine 20 MG TAB PO SCH (08:53)
[2021-04-05] MEDS ORDERED: Lantus 1000 UNITS/10 ML VIAL SC SCH (09:00)
[2021-04-05] MEDS ORDERED: tiZANidine HCl 4 MG TAB PO SCH ×2 (09:30→15:00)
[2021-04-05] MEDS ORDERED: traMADol HCl 50 MG TAB PO PRN (09:35)
[2021-04-05] MEDS ORDERED: tiZANidine HCl 4 MG TAB PO PRN (09:49)
[2021-04-05] MEDS: Empagliflozin 10 MG TAB PO SCH (09:57)
[2021-04-05 13:00] VITALS: BP 128/72
== END 2021-04-05 14:28 | disposition home or self-care (01) | DRG 236 ==
LOC: SURG A 04-01 06:28 → CCU 04-01 10:53 → EDSTATUS 04-01 17:15 → 2NO 04-02 18:58
PROVIDERS: ADMIT Thoracic Surgery (Cardiothoracic Vascular Surgery); ATTEND Thoracic Surgery (Cardiothoracic Vascular Surgery)
PROC: 02100Z9 Bypass Coronary Artery, One Artery from Left Internal Mammary, Open Approach (ICD-10-PCS; principal; 2021-04-01)
PROC: 021109W Bypass Coronary Artery, Two Arteries from Aorta with Autologous Venous Tissue, Open Approach (ICD-10-PCS; 2021-04-01)
PROC: 06BQ4ZZ Excision of Left Saphenous Vein, Percutaneous Endoscopic Approach (ICD-10-PCS; 2021-04-01)
PROC: 5A1221Z Performance of Cardiac Output, Continuous (ICD-10-PCS; 2021-04-01)
DX: I25.110 Atherosclerotic heart disease of native coronary artery with unstable angina pectoris (principal); G47.33 Obstructive sleep apnea (adult) (pediatric); N18.2 Chronic kidney disease, stage 2 (mild); E11.22 Type 2 diabetes mellitus with diabetic chronic kidney disease; I12.9 Hypertensive chronic kidney disease with stage 1 through stage 4 chronic kidney disease, or unspecified chronic kidney disease; E78.2 Mixed hyperlipidemia; E78.00 Pure hypercholesterolemia, unspecified; E03.9 Hypothyroidism, unspecified; G89.29 Other chronic pain; M79.7 Fibromyalgia; I48.0 Paroxysmal atrial fibrillation; I25.5 Ischemic cardiomyopathy; E66.01 Morbid (severe) obesity due to excess calories; G43.909 Migraine, unspecified, not intractable, without status migrainosus; I25.2 Old myocardial infarction; Z79.4 Long term (current) use of insulin; Z88.0 Allergy status to penicillin; Z88.8 Allergy status to other drugs, medicaments and biological substances; Z68.36 Body mass index [BMI] 36.0-36.9, adult; Z85.3 Personal history of malignant neoplasm of breast
CPT/HCPCS: 36416; 36430; 71045; 80048; 80061; 82805; 83735; 84443; 85025; 85027; 85610; 85730; 86850; 86900; 86901; 88184; 88307; 93005; 93010; 93798; J0171; J0282; J1100; J1642; J1644; J1815; J1885; J2001; J2150; J2250; J2260; J2405; J2440; J2704; J2720; J3010; J3370; J3475; J3480; J3490; J7050; J7070; P9045; S0017; S0020; S0028

== ENCOUNTER 2021-04-11 15:31 | Inpatient (IN) | payer MEDICARE ==
[~2021-04-11 15:31] MED LIST changes: -Aspirin Chewable 81 MG TAB ONE; -Heparin 10,000 UNITS/ 10 ML VIAL ONE; -Iopamidol 370 76% 100 ML VIAL ONE; -Iopamidol 370 76% 50 ML VIAL FS ONE; +Iopamidol-370 76% 500 ML 1 ML ONE; -Metoprolol Tartrate 5 MG/5 ML VIAL ONE
[2021-04-11 16:29] LABS: #Basophils 0.1 thou/uL (0.0-0.2); #Eosinphils 0.8 thou/uL (0.0-0.7); #Monocytes 1.1 thou/uL (0.11-0.59); #Neutrophils 10.9 thou/uL (1.40-6.50); %Basophils 0.5 % (0.0-1.0); %Eosinophils 5.3 % (0.0-10.0); %Lymphocytes 13.3 % (21.0-51.0); %Monocytes 7.6 % (0.0-10.0); %Neutrophils 73.3 % (42.0-75.0); Hemoglobin 11.6 g/dL (12.0-16.0); Mean Corpuscular HGB CONC 33.4 g/dL (32.0-36.0); Mean Corpuscular Hemoglobin 32.5 pg (27.0-31.0); Mean Corpuscular Volume 97.2 fL (78.0-98.0); Mean Platelet Volume 7.2 fL (7.4-10.4); Platelet Count 550 thou/uL (130-400); RBC Distribution Width 12.4 % (11.5-14.5); Red Blood Cell (RBC) Count 3.57 mill/uL (4.20-5.40); White Blood Cell (WBC) Count 14.9 thou/uL (4.8-10.8)
[2021-04-11 16:51] LABS: ALT (SGPT) 27 U/L (8-55); AST (SGOT) 25 U/L (5-34); Albumin 3.8 g/dL (3.4-4.8); Alkaline Phosphatase 115 U/L (40-110); Anion Gap 16 mmol/L (10-20); BUN (Urea Nitrogen) 25 mg/dL (9.8-20.1); Bilirubin, Total 0.3 mg/dL (0.2-1.2); Calc. Creatinine Clearance 0 mL/min (70-130); Calcium 9.5 mg/dL (7.8-10.44); Carbon Dioxide 29 mmol/L (23-31); Chloride 100 mmol/L (98-107); Globulin 3.5 g/dL (2.4-3.5); Glucose 107 mg/dL (80-115); Potassium 4.3 mmol/L (3.5-5.1); Protein, Total 7.3 g/dL (5.8-8.1); Sodium 141 mmol/L (136-145)
[2021-04-11 17:15] LABS: CKMB 1.3 ng/mL (0-6.6)
[2021-04-11] MEDS ORDERED: Aspirin Chewable 81 MG TAB ONE (17:15)
[2021-04-11] MEDS ORDERED: Enoxaparin Sodium 80 MG/0.8 ML SYRINGE ONE (18:42)
[2021-04-11] MEDS ORDERED: Enoxaparin Sodium 30 MG/0.3 ML SYRINGE ONE (18:42)
[2021-04-11] MEDS ORDERED: Ondansetron ODT 4 MG TAB PO PRN (20:29)
[2021-04-11] MEDS ORDERED: Acetaminophen 325 MG TAB PO PRN (20:29)
[2021-04-11] MEDS ORDERED: Dextrose 50% Abboject 50 ML SYRINGE SLOW IVP PRN (20:29)
[2021-04-11] MEDS ORDERED: Ondansetron PF 4 MG/2 ML Vial IVP PRN (20:29)
[2021-04-11] MEDS ORDERED: Dextrose 5% in Water 1,000 ML IV PRN (20:29)
[2021-04-11] MEDS ORDERED: Enoxaparin Sodium 120 MG/0.8 ML SYRINGE SC SCH (21:00)
[2021-04-11 23:00] LABS: Troponin I 0.045 ng/mL (< 0.028)
[2021-04-12] MEDS ORDERED: HYDROcodone/Acetaminophen 5/325 mg Tablet ONE ×4 (00:52→14:35)
[2021-04-12] MEDS: traZODone HCl 50 MG TAB PO SCH ×2 (01:04→20:14)
[2021-04-12] MEDS: HYDROcodone/Acetaminophen 5/325 mg Tablet PO PRN ×4 (01:04→14:39)
[2021-04-12 04:46] LABS: #Basophils 0.1 thou/uL (0.0-0.2); #Eosinphils 0.8 thou/uL (0.0-0.7); #Lymphocytes 2.5 thou/uL (1.20-3.40); #Neutrophils 6.8 thou/uL (1.40-6.50); %Basophils 0.5 % (0.0-1.0); %Eosinophils 6.9 % (0.0-10.0); %Lymphocytes 22.5 % (21.0-51.0); %Monocytes 9.2 % (0.0-10.0); %Neutrophils 60.9 % (42.0-75.0); Hemoglobin 10.9 g/dL (12.0-16.0); Mean Corpuscular HGB CONC 33.7 g/dL (32.0-36.0); Mean Corpuscular Hemoglobin 32.9 pg (27.0-31.0); Mean Corpuscular Volume 97.5 fL (78.0-98.0); Mean Platelet Volume 7.4 fL (7.4-10.4); Platelet Count 495 thou/uL (130-400); RBC Distribution Width 12.3 % (11.5-14.5); Red Blood Cell (RBC) Count 3.31 mill/uL (4.20-5.40); White Blood Cell (WBC) Count 11.2 thou/uL (4.8-10.8)
[2021-04-12 05:07] LABS: Anion Gap 12 mmol/L (10-20); BUN (Urea Nitrogen) 27 mg/dL (9.8-20.1); Calc. Creatinine Clearance 0 mL/min (70-130); Carbon Dioxide 30 mmol/L (23-31); Chloride 101 mmol/L (98-107); Glucose 157 mg/dL (80-115); Potassium 3.7 mmol/L (3.5-5.1); Sodium 139 mmol/L (136-145)
[2021-04-12] MEDS ORDERED: Enoxaparin Sodium 100 MG/ML SYRINGE SC SCH (06:00)
[2021-04-12] MEDS ORDERED: Aspirin 81 mg Enteric Coated Tablet ONE (08:54)
[2021-04-12] MEDS: Aspirin 81 mg Enteric Coated Tablet PO SCH (10:27)
[2021-04-12] MEDS: Apixaban 5 MG TAB PO SCH ×2 (10:27→20:14)
[2021-04-12 17:31] VITALS: BMI 36.4
[2021-04-12] MEDS: HumaLOG 300 UNITS/3 ML VIAL SC PRN (18:27)
[2021-04-12] MEDS: HYDROcodone/Acetaminophen 10/325 mg Tablet PO PRN ×2 (18:33→22:52)
[2021-04-12] MEDS: Lidocaine 5% Patch TD SCH (20:14)
[2021-04-12] MEDS ORDERED: Carvedilol 6.25 MG TAB PO SCH (21:00)
[2021-04-12] MEDS ORDERED: Amiodarone 200 MG TAB PO SCH (21:45)
[2021-04-12] MEDS ORDERED: Gabapentin 300 MG CAP PO SCH (21:45)
[2021-04-12] MEDS: tiZANidine HCl 4 MG TAB PO PRN (22:02)
[2021-04-13] MEDS: HYDROcodone/Acetaminophen 10/325 mg Tablet PO PRN ×4 (04:39→19:37)
[2021-04-13] MEDS: Levothyroxine Sodium 25 MCG TAB PO SCH (06:51)
[2021-04-13] MEDS ORDERED: Carvedilol 6.25 MG TAB PO SCH (08:15)
[2021-04-13] MEDS ORDERED: Furosemide 20 MG TAB PO SCH ×2 (09:00)
[2021-04-13] MEDS ORDERED: Levothyroxine Sodium 25 MCG TAB PO SCH (09:00)
[2021-04-13] MEDS: Gabapentin 300 MG CAP PO SCH ×3 (10:09→20:57)
[2021-04-13] MEDS: Amiodarone 200 MG TAB PO SCH ×2 (10:09→20:57)
[2021-04-13] MEDS: Aspirin 81 mg Enteric Coated Tablet PO SCH (10:09)
[2021-04-13] MEDS: Clopidogrel Bisulfate 75 MG TAB PO SCH (10:10)
[2021-04-13] MEDS: Carvedilol 3.125 MG TAB PO SCH ×2 (10:11→21:00)
[2021-04-13] MEDS: Cholecalciferol 1,000 UNITS (25 MCG) TAB PO SCH (10:11)
[2021-04-13] MEDS: Ezetimibe 10 MG TAB PO SCH (10:11)
[2021-04-13] MEDS: Apixaban 5 MG TAB PO SCH ×2 (10:11→20:57)
[2021-04-13] MEDS: buPROPion 75 MG TAB PO SCH (10:12)
[2021-04-13] MEDS: Cyanocobalamin (Vitamin B-12) 1,000 MCG TAB PO SCH (10:12)
[2021-04-13] MEDS: Transdermal Patch Removal TOP SCH (10:13)
[2021-04-13] MEDS: Furosemide 40 MG TAB PO SCH (10:14)
[2021-04-13] MEDS: HumaLOG 300 UNITS/3 ML VIAL SC PRN ×2 (11:31→17:45)
[2021-04-13] MEDS: traZODone HCl 50 MG TAB PO SCH (20:56)
[2021-04-13] MEDS: DULoxetine 60 MG CAP PO SCH (20:56)
[2021-04-13] MEDS: Lidocaine 5% Patch TD SCH (20:56)
[2021-04-14] MEDS: HumaLOG 300 UNITS/3 ML VIAL SC PRN ×4 (00:13→21:56)
[2021-04-14] MEDS: HYDROcodone/Acetaminophen 10/325 mg Tablet PO PRN ×6 (01:27→21:53)
[2021-04-14] MEDS: Levothyroxine Sodium 25 MCG TAB PO SCH (05:55)
[2021-04-14] MEDS: Aspirin 81 mg Enteric Coated Tablet PO SCH (09:24)
[2021-04-14] MEDS: Gabapentin 300 MG CAP PO SCH ×3 (09:24→21:54)
[2021-04-14] MEDS: Amiodarone 200 MG TAB PO SCH ×2 (09:24→21:55)
[2021-04-14] MEDS: buPROPion 75 MG TAB PO SCH (09:24)
[2021-04-14] MEDS: Clopidogrel Bisulfate 75 MG TAB PO SCH (09:24)
[2021-04-14] MEDS: Carvedilol 3.125 MG TAB PO SCH (09:25)
[2021-04-14] MEDS: Apixaban 5 MG TAB PO SCH ×2 (09:25→21:54)
[2021-04-14] MEDS: Ezetimibe 10 MG TAB PO SCH (09:25)
[2021-04-14] MEDS: Cyanocobalamin (Vitamin B-12) 1,000 MCG TAB PO SCH (09:25)
[2021-04-14] MEDS: Furosemide 40 MG TAB PO SCH (09:25)
[2021-04-14] MEDS: Cholecalciferol 1,000 UNITS (25 MCG) TAB PO SCH (09:31)
[2021-04-14] MEDS: Transdermal Patch Removal TOP SCH (09:32)
[2021-04-14] MEDS ORDERED: Carvedilol 3.125 MG TAB PO SCH (21:00)
[2021-04-14] MEDS: Lidocaine 5% Patch TD SCH (21:53)
[2021-04-14] MEDS: traZODone HCl 50 MG TAB PO SCH (21:54)
[2021-04-14] MEDS: DULoxetine 60 MG CAP PO SCH (21:54)
[2021-04-14] MEDS: Carvedilol 6.25 MG TAB PO SCH (21:55)
[2021-04-14] MEDS: tiZANidine HCl 4 MG TAB PO PRN (22:03)
[2021-04-15] MEDS: HYDROcodone/Acetaminophen 10/325 mg Tablet PO PRN ×6 (02:03→23:33)
[2021-04-15] MEDS: Levothyroxine Sodium 25 MCG TAB PO SCH (06:11)
[2021-04-15] MEDS: HumaLOG 300 UNITS/3 ML VIAL SC PRN ×3 (06:12→17:20)
[2021-04-15 08:50] LABS: #Basophils 0.1 thou/uL (0.0-0.2); #Eosinphils 0.8 thou/uL (0.0-0.7); #Lymphocytes 2.6 thou/uL (1.20-3.40); #Monocytes 0.8 thou/uL (0.11-0.59); #Neutrophils 5.9 thou/uL (1.40-6.50); %Basophils 0.7 % (0.0-1.0); %Eosinophils 7.8 % (0.0-10.0); %Lymphocytes 25.4 % (21.0-51.0); %Monocytes 7.7 % (0.0-10.0); %Neutrophils 58.3 % (42.0-75.0); Hemoglobin 10.7 g/dL (12.0-16.0); Mean Corpuscular HGB CONC 31.1 g/dL (32.0-36.0); Mean Corpuscular Hemoglobin 30.5 pg (27.0-31.0); Mean Platelet Volume 7.2 fL (7.4-10.4); Platelet Count 565 thou/uL (130-400); RBC Distribution Width 12.1 % (11.5-14.5); Red Blood Cell (RBC) Count 3.52 mill/uL (4.20-5.40); White Blood Cell (WBC) Count 10.1 thou/uL (4.8-10.8)
[2021-04-15] MEDS: Amiodarone 200 MG TAB PO SCH (08:59)
[2021-04-15] MEDS: buPROPion 75 MG TAB PO SCH (08:59)
[2021-04-15] MEDS: Aspirin 81 mg Enteric Coated Tablet PO SCH (08:59)
[2021-04-15] MEDS: Apixaban 5 MG TAB PO SCH ×2 (08:59→19:43)
[2021-04-15] MEDS: Ezetimibe 10 MG TAB PO SCH (09:00)
[2021-04-15] MEDS: Cyanocobalamin (Vitamin B-12) 1,000 MCG TAB PO SCH (09:00)
[2021-04-15] MEDS: Clopidogrel Bisulfate 75 MG TAB PO SCH (09:00)
[2021-04-15] MEDS: Cholecalciferol 1,000 UNITS (25 MCG) TAB PO SCH (09:00)
[2021-04-15] MEDS: Gabapentin 300 MG CAP PO SCH ×3 (09:01→19:42)
[2021-04-15] MEDS: Transdermal Patch Removal TOP SCH (09:03)
[2021-04-15 09:11] LABS: Anion Gap 13 mmol/L (10-20); BUN (Urea Nitrogen) 15 mg/dL (9.8-20.1); Calc. Creatinine Clearance 95 mL/min (70-130); Calcium 9.3 mg/dL (7.8-10.44); Carbon Dioxide 30 mmol/L (23-31); Chloride 100 mmol/L (98-107); Glucose 163 mg/dL (80-115); Potassium 3.9 mmol/L (3.5-5.1); Sodium 139 mmol/L (136-145)
[2021-04-15] MEDS: Furosemide 40 MG TAB PO SCH (09:17)
[2021-04-15] MEDS: Carvedilol 6.25 MG TAB PO SCH (09:18)
[2021-04-15] MEDS ORDERED: Carvedilol 6.25 MG TAB PO SCH ×2 (10:30→21:00)
[2021-04-15] MEDS: traZODone HCl 50 MG TAB PO SCH (19:41)
[2021-04-15] MEDS: DULoxetine 60 MG CAP PO SCH (19:43)
[2021-04-15] MEDS: Lidocaine 5% Patch TD SCH (19:44)
[2021-04-15] MEDS: tiZANidine HCl 4 MG TAB PO PRN (19:48)
[2021-04-16] MEDS: HYDROcodone/Acetaminophen 10/325 mg Tablet PO PRN ×5 (04:08→23:06)
[2021-04-16] MEDS: Levothyroxine 175 MCG TAB PO SCH (05:35)
[2021-04-16] MEDS: HumaLOG 300 UNITS/3 ML VIAL SC PRN ×3 (06:12→18:10)
[2021-04-16] MEDS: Apixaban 5 MG TAB PO SCH ×2 (09:08→20:45)
[2021-04-16] MEDS: Aspirin 81 mg Enteric Coated Tablet PO SCH (09:09)
[2021-04-16] MEDS: buPROPion 75 MG TAB PO SCH (09:09)
[2021-04-16] MEDS: Cholecalciferol 1,000 UNITS (25 MCG) TAB PO SCH (09:10)
[2021-04-16] MEDS: Clopidogrel Bisulfate 75 MG TAB PO SCH (09:10)
[2021-04-16] MEDS: Ezetimibe 10 MG TAB PO SCH (09:10)
[2021-04-16] MEDS: Gabapentin 300 MG CAP PO SCH ×3 (09:11→20:44)
[2021-04-16] MEDS: Cyanocobalamin (Vitamin B-12) 1,000 MCG TAB PO SCH (09:11)
[2021-04-16] MEDS: tiZANidine HCl 4 MG TAB PO PRN (09:13)
[2021-04-16] MEDS: Transdermal Patch Removal TOP SCH (09:13)
[2021-04-16] MEDS: Furosemide 40 MG TAB PO SCH (09:14)
[2021-04-16] MEDS: Senokot S 8.6-50 MG TAB PO SCH (20:43)
[2021-04-16] MEDS: Lidocaine 5% Patch TD SCH (20:43)
[2021-04-16] MEDS: traZODone HCl 50 MG TAB PO SCH (20:43)
[2021-04-16] MEDS: DULoxetine 60 MG CAP PO SCH (20:45)
[2021-04-16] MEDS ORDERED: Lantus 1000 UNITS/10 ML VIAL SC SCH (21:00)
[2021-04-17] MEDS: HYDROcodone/Acetaminophen 10/325 mg Tablet PO PRN ×5 (03:14→21:20)
[2021-04-17] MEDS: Levothyroxine 175 MCG TAB PO SCH (05:16)
[2021-04-17] MEDS: HumaLOG 300 UNITS/3 ML VIAL SC PRN ×4 (05:40→21:01)
[2021-04-17] MEDS: Ezetimibe 10 MG TAB PO SCH (08:28)
[2021-04-17] MEDS: Aspirin 81 mg Enteric Coated Tablet PO SCH (08:28)
[2021-04-17] MEDS: Furosemide 40 MG TAB PO SCH (08:28)
[2021-04-17] MEDS: Apixaban 5 MG TAB PO SCH ×2 (08:28→21:03)
[2021-04-17] MEDS: Cyanocobalamin (Vitamin B-12) 1,000 MCG TAB PO SCH (08:28)
[2021-04-17] MEDS: buPROPion 75 MG TAB PO SCH (08:28)
[2021-04-17] MEDS: Cholecalciferol 1,000 UNITS (25 MCG) TAB PO SCH (08:29)
[2021-04-17] MEDS: Senokot S 8.6-50 MG TAB PO SCH ×2 (08:29→21:01)
[2021-04-17] MEDS: Polyethylene Glycol 3350 17 GM Packet PO SCH (08:30)
[2021-04-17] MEDS: Gabapentin 300 MG CAP PO SCH ×3 (08:30→21:01)
[2021-04-17] MEDS: Clopidogrel Bisulfate 75 MG TAB PO SCH (08:30)
[2021-04-17] MEDS: Transdermal Patch Removal TOP SCH (08:31)
[2021-04-17 09:16] LABS: #Basophils 0.1 thou/uL (0.0-0.2); #Eosinphils 0.8 thou/uL (0.0-0.7); #Lymphocytes 2.6 thou/uL (1.20-3.40); #Monocytes 0.7 thou/uL (0.11-0.59); #Neutrophils 6.5 thou/uL (1.40-6.50); %Basophils 0.7 % (0.0-1.0); %Eosinophils 7.6 % (0.0-10.0); %Lymphocytes 24.2 % (21.0-51.0); %Monocytes 6.4 % (0.0-10.0); Mean Corpuscular HGB CONC 32.6 g/dL (32.0-36.0); Mean Corpuscular Hemoglobin 31.4 pg (27.0-31.0); Mean Corpuscular Volume 96.5 fL (78.0-98.0); Mean Platelet Volume 7.1 fL (7.4-10.4); Platelet Count 642 thou/uL (130-400); RBC Distribution Width 12.2 % (11.5-14.5); Red Blood Cell (RBC) Count 4.15 mill/uL (4.20-5.40); White Blood Cell (WBC) Count 10.6 thou/uL (4.8-10.8)
[2021-04-17 09:21] LABS: Anion Gap 14 mmol/L (10-20); BUN (Urea Nitrogen) 18 mg/dL (9.8-20.1); Calc. Creatinine Clearance 85 mL/min (70-130); Calcium 9.6 mg/dL (7.8-10.44); Carbon Dioxide 29 mmol/L (23-31); Chloride 98 mmol/L (98-107); Glucose 182 mg/dL (80-115); Potassium 4.2 mmol/L (3.5-5.1); Sodium 137 mmol/L (136-145)
[2021-04-17] MEDS ORDERED: Carvedilol 3.125 MG TAB PO SCH (09:45)
[2021-04-17] MEDS: Carvedilol 3.125 MG TAB PO SCH (16:01)
[2021-04-17] MEDS: Lantus 1000 UNITS/10 ML VIAL SC SCH (21:00)
[2021-04-17] MEDS: DULoxetine 60 MG CAP PO SCH (21:00)
[2021-04-17] MEDS: Lidocaine 5% Patch TD SCH (21:00)
[2021-04-17] MEDS: traZODone HCl 50 MG TAB PO SCH (21:02)
[2021-04-17] MEDS: Nystatin Powder 15 GM BOT TOP SCH (21:02)
[2021-04-17] MEDS: tiZANidine HCl 4 MG TAB PO PRN (21:15)
[2021-04-18] MEDS: HYDROcodone/Acetaminophen 10/325 mg Tablet PO PRN ×5 (01:42→20:47)
[2021-04-18] MEDS: Levothyroxine 175 MCG TAB PO SCH (05:40)
[2021-04-18] MEDS: HumaLOG 300 UNITS/3 ML VIAL SC PRN ×2 (06:03→18:02)
[2021-04-18] MEDS: Cyanocobalamin (Vitamin B-12) 1,000 MCG TAB PO SCH (10:22)
[2021-04-18] MEDS: Senokot S 8.6-50 MG TAB PO SCH ×2 (10:22→20:46)
[2021-04-18] MEDS: Gabapentin 300 MG CAP PO SCH ×3 (10:22→20:45)
[2021-04-18] MEDS: Ezetimibe 10 MG TAB PO SCH (10:22)
[2021-04-18] MEDS: Clopidogrel Bisulfate 75 MG TAB PO SCH (10:22)
[2021-04-18] MEDS: Apixaban 5 MG TAB PO SCH ×2 (10:23→20:45)
[2021-04-18] MEDS: Furosemide 40 MG TAB PO SCH (10:23)
[2021-04-18] MEDS: Cholecalciferol 1,000 UNITS (25 MCG) TAB PO SCH (10:23)
[2021-04-18] MEDS: buPROPion 75 MG TAB PO SCH (10:24)
[2021-04-18] MEDS: Carvedilol 3.125 MG TAB PO SCH ×2 (10:24→16:30)
[2021-04-18] MEDS: Nystatin Powder 15 GM BOT TOP SCH ×2 (10:27→20:49)
[2021-04-18] MEDS: Polyethylene Glycol 3350 17 GM Packet PO SCH (10:28)
[2021-04-18] MEDS: Transdermal Patch Removal TOP SCH (10:28)
[2021-04-18] MEDS: DULoxetine 60 MG CAP PO SCH (20:45)
[2021-04-18] MEDS: Lantus 1000 UNITS/10 ML VIAL SC SCH (20:46)
[2021-04-18] MEDS: tiZANidine HCl 4 MG TAB PO PRN (20:46)
[2021-04-18] MEDS: traZODone HCl 50 MG TAB PO SCH (20:46)
[2021-04-18] MEDS: Lidocaine 5% Patch TD SCH (20:47)
[2021-04-19] MEDS: HYDROcodone/Acetaminophen 10/325 mg Tablet PO PRN ×6 (00:37→21:47)
[2021-04-19] MEDS: Levothyroxine 175 MCG TAB PO SCH (05:12)
[2021-04-19] MEDS: HumaLOG 300 UNITS/3 ML VIAL SC PRN ×3 (06:05→21:42)
[2021-04-19] MEDS: Cyanocobalamin (Vitamin B-12) 1,000 MCG TAB PO SCH (09:29)
[2021-04-19] MEDS: Carvedilol 3.125 MG TAB PO SCH ×2 (09:31→18:01)
[2021-04-19] MEDS: Gabapentin 300 MG CAP PO SCH ×3 (09:31→21:40)
[2021-04-19] MEDS: Clopidogrel Bisulfate 75 MG TAB PO SCH (09:31)
[2021-04-19] MEDS: Furosemide 40 MG TAB PO SCH (09:31)
[2021-04-19] MEDS: Apixaban 5 MG TAB PO SCH (09:32)
[2021-04-19] MEDS: buPROPion 75 MG TAB PO SCH (09:32)
[2021-04-19] MEDS: Cholecalciferol 1,000 UNITS (25 MCG) TAB PO SCH (09:32)
[2021-04-19] MEDS: Ezetimibe 10 MG TAB PO SCH (09:32)
[2021-04-19] MEDS: Senokot S 8.6-50 MG TAB PO SCH ×2 (09:32→21:40)
[2021-04-19] MEDS: Nystatin Powder 15 GM BOT TOP SCH ×2 (09:33→21:41)
[2021-04-19] MEDS: Transdermal Patch Removal TOP SCH (09:34)
[2021-04-19] MEDS: Polyethylene Glycol 3350 17 GM Packet PO SCH (09:34)
[2021-04-19] MEDS ORDERED: Tranexamic Acid 1,000 MG/10 ML VIAL SSP SCH (14:15)
[2021-04-19 20:25] LABS: Hemoglobin 11.1 g/dL (12.0-16.0)
[2021-04-19] MEDS: DULoxetine 60 MG CAP PO SCH (21:38)
[2021-04-19] MEDS: traZODone HCl 50 MG TAB PO SCH (21:39)
[2021-04-19] MEDS: Lantus 1000 UNITS/10 ML VIAL SC SCH (21:40)
[2021-04-19] MEDS: Lidocaine 5% Patch TD SCH (21:41)
[2021-04-20] MEDS: HYDROcodone/Acetaminophen 10/325 mg Tablet PO PRN ×6 (02:37→23:20)
[2021-04-20 04:41] LABS: #Basophils 0.1 thou/uL (0.0-0.2); #Eosinphils 0.6 thou/uL (0.0-0.7); #Lymphocytes 2.4 thou/uL (1.20-3.40); #Monocytes 0.8 thou/uL (0.11-0.59); #Neutrophils 4.4 thou/uL (1.40-6.50); %Basophils 0.8 % (0.0-1.0); %Eosinophils 7.1 % (0.0-10.0); %Lymphocytes 28.6 % (21.0-51.0); %Monocytes 10.1 % (0.0-10.0); %Neutrophils 53.4 % (42.0-75.0); Hemoglobin 11.2 g/dL (12.0-16.0); Mean Corpuscular HGB CONC 32.9 g/dL (32.0-36.0); Mean Corpuscular Hemoglobin 31.5 pg (27.0-31.0); Mean Corpuscular Volume 95.6 fL (78.0-98.0); Mean Platelet Volume 7.2 fL (7.4-10.4); Platelet Count 569 thou/uL (130-400); RBC Distribution Width 12.1 % (11.5-14.5); Red Blood Cell (RBC) Count 3.54 mill/uL (4.20-5.40); White Blood Cell (WBC) Count 8.3 thou/uL (4.8-10.8)
[2021-04-20 05:00] LABS: Anion Gap 11 mmol/L (10-20); BUN (Urea Nitrogen) 21 mg/dL (9.8-20.1); Calc. Creatinine Clearance 101 mL/min (70-130); Calcium 9.4 mg/dL (7.8-10.44); Carbon Dioxide 35 mmol/L (23-31); Chloride 97 mmol/L (98-107); Glucose 155 mg/dL (80-115); Potassium 3.7 mmol/L (3.5-5.1); Sodium 139 mmol/L (136-145)
[2021-04-20] MEDS: Levothyroxine 175 MCG TAB PO SCH (05:53)
[2021-04-20] MEDS: HumaLOG 300 UNITS/3 ML VIAL SC PRN ×3 (06:29→18:01)
[2021-04-20] MEDS: Gabapentin 300 MG CAP PO SCH ×3 (08:28→22:18)
[2021-04-20] MEDS: Senokot S 8.6-50 MG TAB PO SCH ×2 (08:29→22:22)
[2021-04-20] MEDS: Carvedilol 3.125 MG TAB PO SCH ×2 (08:29→18:01)
[2021-04-20] MEDS: Ezetimibe 10 MG TAB PO SCH (08:29)
[2021-04-20] MEDS: Cholecalciferol 1,000 UNITS (25 MCG) TAB PO SCH (08:29)
[2021-04-20] MEDS: buPROPion 75 MG TAB PO SCH (08:29)
[2021-04-20] MEDS: Cyanocobalamin (Vitamin B-12) 1,000 MCG TAB PO SCH (08:29)
[2021-04-20] MEDS: Furosemide 40 MG TAB PO SCH (08:29)
[2021-04-20] MEDS: Apixaban 5 MG TAB PO SCH ×2 (08:30→23:21)
[2021-04-20] MEDS: Nystatin Powder 15 GM BOT TOP SCH ×2 (08:30→22:35)
[2021-04-20] MEDS: Polyethylene Glycol 3350 17 GM Packet PO SCH (08:30)
[2021-04-20] MEDS: Transdermal Patch Removal TOP SCH (08:31)
[2021-04-20] MEDS: traZODone HCl 50 MG TAB PO SCH (22:19)
[2021-04-20] MEDS: DULoxetine 60 MG CAP PO SCH (22:20)
[2021-04-20] MEDS: Lidocaine 5% Patch TD SCH (22:22)
[2021-04-20] MEDS: tiZANidine HCl 4 MG TAB PO PRN (22:25)
[2021-04-20] MEDS: Lantus 1000 UNITS/10 ML VIAL SC SCH (22:26)
[2021-04-21] MEDS: Levothyroxine 175 MCG TAB PO SCH (06:31)
[2021-04-21] MEDS: HumaLOG 300 UNITS/3 ML VIAL SC PRN ×2 (06:33→16:51)
[2021-04-21] MEDS: buPROPion 75 MG TAB PO SCH (09:12)
[2021-04-21] MEDS: Cholecalciferol 1,000 UNITS (25 MCG) TAB PO SCH (09:12)
[2021-04-21] MEDS: Ezetimibe 10 MG TAB PO SCH (09:12)
[2021-04-21] MEDS: HYDROcodone/Acetaminophen 10/325 mg Tablet PO PRN ×4 (09:13→22:05)
[2021-04-21] MEDS: Carvedilol 3.125 MG TAB PO SCH ×2 (09:14→16:58)
[2021-04-21] MEDS: Gabapentin 300 MG CAP PO SCH ×3 (09:14→20:35)
[2021-04-21] MEDS: Furosemide 40 MG TAB PO SCH (09:15)
[2021-04-21] MEDS: Apixaban 5 MG TAB PO SCH ×2 (09:15→20:36)
[2021-04-21] MEDS: Cyanocobalamin (Vitamin B-12) 1,000 MCG TAB PO SCH (09:15)
[2021-04-21] MEDS: Senokot S 8.6-50 MG TAB PO SCH ×2 (09:15→20:35)
[2021-04-21] MEDS: Aspirin 81 mg Enteric Coated Tablet PO SCH (09:15)
[2021-04-21] MEDS: Polyethylene Glycol 3350 17 GM Packet PO SCH (09:16)
[2021-04-21] MEDS: Nystatin Powder 15 GM BOT TOP SCH ×2 (09:16→21:57)
[2021-04-21] MEDS ORDERED: Insulin Regular 300 UNITS/3 ML VIAL SC PRN (10:21)
[2021-04-21] MEDS ORDERED: Dextrose 50% Abboject 50 ML SYRINGE SLOW IVP PRN (10:21)
[2021-04-21] MEDS ORDERED: Dextrose 5% in Water 1,000 ML IV PRN (10:21)
[2021-04-21] MEDS: Transdermal Patch Removal TOP SCH (11:08)
[2021-04-21 12:16] LABS: #Basophils 0.1 thou/uL (0.0-0.2); #Eosinphils 0.5 thou/uL (0.0-0.7); #Lymphocytes 1.8 thou/uL (1.20-3.40); #Monocytes 0.7 thou/uL (0.11-0.59); #Neutrophils 5.3 thou/uL (1.40-6.50); %Basophils 0.8 % (0.0-1.0); %Eosinophils 5.9 % (0.0-10.0); %Lymphocytes 21.3 % (21.0-51.0); %Monocytes 8.4 % (0.0-10.0); %Neutrophils 63.7 % (42.0-75.0); Hemoglobin 11.2 g/dL (12.0-16.0); Mean Corpuscular HGB CONC 33.1 g/dL (32.0-36.0); Mean Corpuscular Hemoglobin 31.5 pg (27.0-31.0); Mean Corpuscular Volume 95.2 fL (78.0-98.0); Mean Platelet Volume 7.2 fL (7.4-10.4); Platelet Count 571 thou/uL (130-400); RBC Distribution Width 12.2 % (11.5-14.5); Red Blood Cell (RBC) Count 3.55 mill/uL (4.20-5.40); White Blood Cell (WBC) Count 8.2 thou/uL (4.8-10.8)
[2021-04-21 12:35] LABS: Anion Gap 13 mmol/L (10-20); BUN (Urea Nitrogen) 20 mg/dL (9.8-20.1); Calc. Creatinine Clearance 91 mL/min (70-130); Carbon Dioxide 32 mmol/L (23-31); Chloride 96 mmol/L (98-107); Glucose 231 mg/dL (80-115); Sodium 137 mmol/L (136-145)
[2021-04-21] MEDS: DULoxetine 60 MG CAP PO SCH (20:35)
[2021-04-21] MEDS: traZODone HCl 50 MG TAB PO SCH (20:36)
[2021-04-21] MEDS: Lidocaine 5% Patch TD SCH (20:37)
[2021-04-21] MEDS ORDERED: Lantus 1000 UNITS/10 ML VIAL SC SCH (21:00)
[2021-04-21] MEDS: tiZANidine HCl 4 MG TAB PO PRN (22:09)
[2021-04-22 04:23] LABS: #Basophils 0.1 thou/uL (0.0-0.2); #Eosinphils 0.5 thou/uL (0.0-0.7); #Lymphocytes 2.5 thou/uL (1.20-3.40); #Monocytes 0.7 thou/uL (0.11-0.59); #Neutrophils 3.7 thou/uL (1.40-6.50); %Basophils 0.9 % (0.0-1.0); %Eosinophils 6.6 % (0.0-10.0); %Lymphocytes 33.3 % (21.0-51.0); %Monocytes 9.5 % (0.0-10.0); %Neutrophils 49.7 % (42.0-75.0); Hemoglobin 11.3 g/dL (12.0-16.0); Mean Corpuscular HGB CONC 33.1 g/dL (32.0-36.0); Mean Corpuscular Hemoglobin 31.8 pg (27.0-31.0); Mean Corpuscular Volume 95.9 fL (78.0-98.0); Mean Platelet Volume 7.3 fL (7.4-10.4); Platelet Count 548 thou/uL (130-400); Red Blood Cell (RBC) Count 3.56 mill/uL (4.20-5.40); White Blood Cell (WBC) Count 7.4 thou/uL (4.8-10.8)
[2021-04-22 04:49] LABS: Anion Gap 11 mmol/L (10-20); BUN (Urea Nitrogen) 18 mg/dL (9.8-20.1); Calc. Creatinine Clearance 96 mL/min (70-130); Calcium 9.1 mg/dL (7.8-10.44); Carbon Dioxide 32 mmol/L (23-31); Chloride 99 mmol/L (98-107); Glucose 205 mg/dL (80-115); Sodium 138 mmol/L (136-145)
[2021-04-22] MEDS: Levothyroxine 175 MCG TAB PO SCH (05:38)
[2021-04-22] MEDS: HumaLOG 300 UNITS/3 ML VIAL SC PRN ×4 (05:59→16:44)
[2021-04-22] MEDS ORDERED: Carvedilol 3.125 MG TAB PO SCH ×2 (09:13→09:30)
[2021-04-22] MEDS: buPROPion 75 MG TAB PO SCH (09:19)
[2021-04-22] MEDS: Cholecalciferol 1,000 UNITS (25 MCG) TAB PO SCH (09:19)
[2021-04-22] MEDS: Senokot S 8.6-50 MG TAB PO SCH ×2 (09:20→20:48)
[2021-04-22] MEDS: Gabapentin 300 MG CAP PO SCH ×3 (09:20→20:44)
[2021-04-22] MEDS: Ezetimibe 10 MG TAB PO SCH (09:20)
[2021-04-22] MEDS: Aspirin 81 mg Enteric Coated Tablet PO SCH (09:20)
[2021-04-22] MEDS: Polyethylene Glycol 3350 17 GM Packet PO SCH (09:21)
[2021-04-22] MEDS: Cyanocobalamin (Vitamin B-12) 1,000 MCG TAB PO SCH (09:21)
[2021-04-22] MEDS: Apixaban 5 MG TAB PO SCH ×2 (09:21→20:43)
[2021-04-22] MEDS: Transdermal Patch Removal TOP SCH (09:22)
[2021-04-22] MEDS: Nystatin Powder 15 GM BOT TOP SCH ×2 (09:22→20:53)
[2021-04-22] MEDS: Carvedilol 3.125 MG TAB PO SCH ×2 (09:28→16:53)
[2021-04-22] MEDS: Furosemide 40 MG TAB PO SCH (09:28)
[2021-04-22] MEDS: HYDROcodone/Acetaminophen 10/325 mg Tablet PO PRN ×2 (09:32→22:03)
[2021-04-22] MEDS ORDERED: Lantus 1000 UNITS/10 ML VIAL SC SCH (17:11)
[2021-04-22] MEDS: Amiodarone 200 MG TAB PO SCH (20:42)
[2021-04-22] MEDS: traZODone HCl 50 MG TAB PO SCH (20:44)
[2021-04-22] MEDS: DULoxetine 60 MG CAP PO SCH (20:47)
[2021-04-22] MEDS: Lidocaine 5% Patch TD SCH (20:51)
[2021-04-22] MEDS: tiZANidine HCl 4 MG TAB PO PRN (22:04)
[2021-04-23] MEDS: HYDROcodone/Acetaminophen 10/325 mg Tablet PO PRN ×3 (04:11→14:41)
[2021-04-23] MEDS: Levothyroxine 175 MCG TAB PO SCH (05:30)
[2021-04-23] MEDS: HumaLOG 300 UNITS/3 ML VIAL SC PRN ×2 (06:14→11:07)
[2021-04-23 07:19] LABS: #Basophils 0.1 thou/uL (0.0-0.2); #Eosinphils 0.4 thou/uL (0.0-0.7); #Lymphocytes 2.8 thou/uL (1.20-3.40); #Monocytes 0.6 thou/uL (0.11-0.59); #Neutrophils 3.3 thou/uL (1.40-6.50); %Basophils 0.8 % (0.0-1.0); %Eosinophils 5.1 % (0.0-10.0); %Lymphocytes 38.4 % (21.0-51.0); %Monocytes 8.9 % (0.0-10.0); %Neutrophils 46.8 % (42.0-75.0); Hemoglobin 10.9 g/dL (12.0-16.0); Mean Corpuscular HGB CONC 32.7 g/dL (32.0-36.0); Mean Corpuscular Hemoglobin 31.4 pg (27.0-31.0); Mean Corpuscular Volume 96.2 fL (78.0-98.0); Mean Platelet Volume 7.6 fL (7.4-10.4); Platelet Count 535 thou/uL (130-400); RBC Distribution Width 12.2 % (11.5-14.5); Red Blood Cell (RBC) Count 3.46 mill/uL (4.20-5.40); White Blood Cell (WBC) Count 7.2 thou/uL (4.8-10.8)
[2021-04-23 07:51] LABS: Anion Gap 11 mmol/L (10-20); BUN (Urea Nitrogen) 15 mg/dL (9.8-20.1); Calc. Creatinine Clearance 82 mL/min (70-130); Calcium 9.4 mg/dL (7.8-10.44); Carbon Dioxide 34 mmol/L (23-31); Chloride 100 mmol/L (98-107); Glucose 223 mg/dL (80-115); Sodium 141 mmol/L (136-145)
[2021-04-23] MEDS: Ezetimibe 10 MG TAB PO SCH (09:57)
[2021-04-23] MEDS: Senokot S 8.6-50 MG TAB PO SCH (09:57)
[2021-04-23] MEDS: Aspirin 81 mg Enteric Coated Tablet PO SCH (09:57)
[2021-04-23] MEDS: Apixaban 5 MG TAB PO SCH (09:58)
[2021-04-23] MEDS: buPROPion 75 MG TAB PO SCH (09:58)
[2021-04-23] MEDS: Gabapentin 300 MG CAP PO SCH ×2 (09:58→14:40)
[2021-04-23] MEDS: Cyanocobalamin (Vitamin B-12) 1,000 MCG TAB PO SCH (09:58)
[2021-04-23] MEDS: Amiodarone 200 MG TAB PO SCH (09:58)
[2021-04-23] MEDS: Cholecalciferol 1,000 UNITS (25 MCG) TAB PO SCH (09:58)
[2021-04-23] MEDS: Carvedilol 3.125 MG TAB PO SCH ×2 (09:59→17:34)
[2021-04-23] MEDS: Polyethylene Glycol 3350 17 GM Packet PO SCH (09:59)
[2021-04-23] MEDS: Transdermal Patch Removal TOP SCH (10:00)
[2021-04-23] MEDS: Nystatin Powder 15 GM BOT TOP SCH (10:06)
[2021-04-23 17:08] VITALS: BP 98/54; TEMP 98.4
== END 2021-04-23 19:20 | DRG 164 ==
LOC: ERS 15:31 → ERHOLD 19:54 → 2NO 04-12 17:16 → OBSVTOIN 04-14 10:00 → 2NO 04-22 22:33
PROVIDERS: ADMIT Student in an Organized Health Care Education/Training Program; ATTEND Emergency Medicine
PROC: 0CQ7XZZ Repair Tongue, External Approach (ICD-10-PCS; principal; 2021-04-19)
PROC: 0W33XZZ Control Bleeding in Oral Cavity and Throat, External Approach (ICD-10-PCS; 2021-04-19)
DX: I26.99 Other pulmonary embolism without acute cor pulmonale (principal); I50.22 Chronic systolic (congestive) heart failure; M79.7 Fibromyalgia; G47.419 Narcolepsy without cataplexy; E11.9 Type 2 diabetes mellitus without complications; E03.9 Hypothyroidism, unspecified; I11.0 Hypertensive heart disease with heart failure; G47.33 Obstructive sleep apnea (adult) (pediatric); R09.02 Hypoxemia; G89.18 Other acute postprocedural pain; R07.89 Other chest pain; I95.9 Hypotension, unspecified; K14.8 Other diseases of tongue; S01.512A Laceration without foreign body of oral cavity, initial encounter; Z85.3 Personal history of malignant neoplasm of breast; Z90.12 Acquired absence of left breast and nipple; Z95.1 Presence of aortocoronary bypass graft; Z88.0 Allergy status to penicillin; Z88.8 Allergy status to other drugs, medicaments and biological substances; Z79.899 Other long term (current) drug therapy; Z79.890 Hormone replacement therapy; Z79.02 Long term (current) use of antithrombotics/antiplatelets; Z90.49 Acquired absence of other specified parts of digestive tract; Z90.89 Acquired absence of other organs; I25.2 Old myocardial infarction
CPT/HCPCS: 36415; 36416; 71045; 71275; 80048; 80053; 82553; 83880; 84484; 85014; 85018; 85025; 93005; 93306; 93970; 94760; 96372; G0378; J1650; J1815; Q9967

== ENCOUNTER 2021-09-16 10:18 | Inpatient (IN) | payer MEDICARE ==
[2021-09-16] MEDS ORDERED: Ondansetron PF 4 MG/2 ML Vial ONE (10:57)
[2021-09-16 11:04] LABS: #Eosinphils 0.4 thou/uL (0.0-0.7); #Monocytes 0.9 thou/uL (0.11-0.59); %Basophils 0.3 % (0.0-1.0); %Eosinophils 4.5 % (0.0-10.0); %Lymphocytes 23.6 % (21.0-51.0); %Monocytes 10.4 % (0.0-10.0); %Neutrophils 61.3 % (42.0-75.0); Hemoglobin 13.7 g/dL (12.0-16.0); Mean Corpuscular HGB CONC 31.3 g/dL (32.0-36.0); Mean Corpuscular Hemoglobin 29.5 pg (27.0-31.0); Mean Corpuscular Volume 94.2 fL (78.0-98.0); Mean Platelet Volume 8.1 fL (7.4-10.4); Platelet Count 325 thou/uL (130-400); RBC Distribution Width 13.5 % (11.5-14.5); Red Blood Cell (RBC) Count 4.63 mill/uL (4.20-5.40); White Blood Cell (WBC) Count 8.2 thou/uL (4.8-10.8)
[2021-09-16 11:32] LABS: ALT (SGPT) 14 U/L (8-55); AST (SGOT) 14 U/L (5-34); Albumin 3.9 g/dL (3.4-4.8); Alkaline Phosphatase 127 U/L (40-110); Anion Gap 15 mmol/L (10-20); BUN (Urea Nitrogen) 28 mg/dL (9.8-20.1); Bilirubin, Total 0.3 mg/dL (0.2-1.2); Calc. Creatinine Clearance 0 mL/min (70-130); Calcium 9.5 mg/dL (7.8-10.44); Carbon Dioxide 27 mmol/L (23-31); Chloride 100 mmol/L (98-107); Globulin 3.6 g/dL (2.4-3.5); Glucose 268 mg/dL (80-115); Potassium 3.9 mmol/L (3.5-5.1); Protein, Total 7.5 g/dL (5.8-8.1); Sodium 138 mmol/L (136-145)
[2021-09-16 14:10] LABS: Bilirubin Negative (Negative); Blood, Urine Negative (Negative); Clarity Clear (Clear); Glucose, Urine (Dipstick) Greater than 1000 mg/dL (Negative); Ketone, Urine Negative (Negative); Leukocyte Negative Leu/uL (Negative); Nitrite Negative (Negative); Protein, Urine (Dipstick) Negative (Neg-Trace); Urobilinogen Normal mg/dL (Less than 2)
[2021-09-16 14:11] LABS: Lactic Acid 1.7 mmol/L (0.5-2.2)
[2021-09-16] MEDS ORDERED: Gabapentin 300 MG CAP PO SCH ×2 (15:45→22:15)
[2021-09-16] MEDS ORDERED: Vancomycin 1 GM/200 ML BAG ONE (16:08)
[2021-09-16 17:10] VITALS: BMI 34.4
[2021-09-16] MEDS ORDERED: FLU VACC QS2021-22(65YR UP)/PF 240 MCG/0.7 ML SYRINGE IM ONE (17:30)
[2021-09-16] MEDS ORDERED: Bisacodyl 5 MG TAB PO PRN (18:11)
[2021-09-16] MEDS ORDERED: Acetaminophen 325 MG TAB PO PRN (18:11)
[2021-09-16] MEDS ORDERED: Ondansetron PF 4 MG/2 ML Vial IVP PRN (18:11)
[2021-09-16] MEDS ORDERED: Senokot S 8.6-50 MG TAB PO PRN (18:11)
[2021-09-16] MEDS ORDERED: Nitroglycerin 0.4 MG TAB (25 Tab Bottle) SL PRN (18:21)
[2021-09-16] MEDS ORDERED: Melatonin 3 MG TAB PO PRN (18:21)
[2021-09-16] MEDS ORDERED: Dextrose 5% in Water 1,000 ML IV PRN (18:52)
[2021-09-16] MEDS ORDERED: HumaLOG 300 UNITS/3 ML VIAL SC PRN ×2 (18:52)
[2021-09-16] MEDS ORDERED: Dextrose 50% Abboject 50 ML SYRINGE SLOW IVP PRN (18:52)
[2021-09-16] MEDS ORDERED: Pantoprazole 40 MG VIAL IVP SCH (19:00)
[2021-09-16] MEDS: Sodium Chloride 0.9% 1,000 ML IV SCH (19:16)
[2021-09-16] MEDS ORDERED: Non-Formulary Item 1 EACH (Trazodone Hcl [Trazodone Hcl] 100 MG Tablet) PO SCH (21:00)
[2021-09-16] MEDS ORDERED: Lantus 1000 UNITS/10 ML VIAL SC SCH (21:00)
[2021-09-16] MEDS ORDERED: traZODone HCl 50 MG TAB PO SCH (22:00)
[2021-09-16] MEDS: Apixaban 5 MG TAB PO SCH (23:01)
[2021-09-17] MEDS: Sodium Chloride 0.9% 1,000 ML IV SCH (05:45)
[2021-09-17] MEDS ORDERED: Levothyroxine 175 MCG TAB PO SCH (06:00)
[2021-09-17] MEDS ORDERED: Furosemide 20 MG/2 ML VIAL SLOW IVP SCH (06:00)
[2021-09-17 06:15] LABS: #Eosinphils 0.6 thou/uL (0.0-0.7); #Monocytes 1.1 thou/uL (0.11-0.59); #Neutrophils 3.9 thou/uL (1.40-6.50); %Basophils 0.4 % (0.0-1.0); %Eosinophils 7.8 % (0.0-10.0); %Lymphocytes 26.5 % (21.0-51.0); %Monocytes 14.2 % (0.0-10.0); %Neutrophils 51.2 % (42.0-75.0); Mean Corpuscular HGB CONC 31.5 g/dL (32.0-36.0); Mean Corpuscular Hemoglobin 31.3 pg (27.0-31.0); Mean Corpuscular Volume 99.4 fL (78.0-98.0); Platelet Count 253 thou/uL (130-400); RBC Distribution Width 13.6 % (11.5-14.5); Red Blood Cell (RBC) Count 4.47 mill/uL (4.20-5.40); White Blood Cell (WBC) Count 7.6 thou/uL (4.8-10.8)
[2021-09-17 06:32] LABS: ALT (SGPT) 11 U/L (8-55); AST (SGOT) 19 U/L (5-34); Albumin 2.9 g/dL (3.4-4.8); Alkaline Phosphatase 104 U/L (40-110); Anion Gap 15 mmol/L (10-20); BUN (Urea Nitrogen) 16 mg/dL (9.8-20.1); Bilirubin, Total 0.3 mg/dL (0.2-1.2); Calc. Creatinine Clearance 92 mL/min (70-130); Calcium 8.4 mg/dL (7.8-10.44); Carbon Dioxide 18 mmol/L (23-31); Cardiac Risk 3.2 (Less than 4.5); Chloride 110 mmol/L (98-107); Cholesterol 122 mg/dl (< 200 Desired); Globulin 3.6 g/dL (2.4-3.5); Glucose 141 mg/dL (80-115); HDL Cholesterol 38 mg/dL (>60 Neg Risk); LDL Cholesterol, Calculated 44 mg/dL; Potassium 4.6 mmol/L (3.5-5.1); Protein, Total 6.5 g/dL (5.8-8.1); Sodium 138 mmol/L (136-145); Triglycerides 200 mg/dL (Less than 150)
[2021-09-17 06:45] LABS: Hemoglobin A1c 7.4 % (4.0-6.0)
[2021-09-17] MEDS ORDERED: Carvedilol 3.125 MG TAB PO SCH (08:00)
[2021-09-17] MEDS ORDERED: Polyethylene Glycol 3350 17 GM Packet PO SCH (09:00)
[2021-09-17] MEDS ORDERED: Pantoprazole 40 MG VIAL IVP SCH (09:00)
[2021-09-17] MEDS ORDERED: Clopidogrel Bisulfate 75 MG TAB PO SCH (09:00)
[2021-09-17] MEDS: Gabapentin 300 MG CAP PO SCH ×2 (09:24→14:48)
[2021-09-17] MEDS: Apixaban 5 MG TAB PO SCH (09:27)
[2021-09-17 13:34] VITALS: TEMP 98.2
[2021-09-17 14:26] VITALS: BP 94/46
[2021-09-17 16:46] LABS: SARS-CoV-2 PCR by NAA Not Detected (NotDetected)
[2021-09-17] MEDS ORDERED: traZODone HCl 50 MG TAB PO SCH (21:00)
[2021-09-20] MEDS ORDERED: Apixaban 5 MG TAB PO SCH (09:00)
== END 2021-09-17 15:30 | disposition home or self-care (01) | DRG 315 ==
LOC: ERS 10:18 → 2NO 15:11
PROVIDERS: ADMIT Family Medicine; ATTEND Internal Medicine
DX: I95.9 Hypotension, unspecified (principal); N17.9 Acute kidney failure, unspecified; E87.2 Acidosis; Z20.822 Contact with and (suspected) exposure to COVID-19; M79.7 Fibromyalgia; E11.51 Type 2 diabetes mellitus with diabetic peripheral angiopathy without gangrene; E03.9 Hypothyroidism, unspecified; E11.65 Type 2 diabetes mellitus with hyperglycemia; I25.2 Old myocardial infarction; Z86.711 Personal history of pulmonary embolism; Z88.0 Allergy status to penicillin; Z88.8 Allergy status to other drugs, medicaments and biological substances; Z79.01 Long term (current) use of anticoagulants; Z79.4 Long term (current) use of insulin; Z79.899 Other long term (current) drug therapy; Z79.82 Long term (current) use of aspirin; Z85.3 Personal history of malignant neoplasm of breast; Z90.49 Acquired absence of other specified parts of digestive tract; Z98.51 Tubal ligation status; Z90.89 Acquired absence of other organs; Z95.1 Presence of aortocoronary bypass graft; Z90.12 Acquired absence of left breast and nipple; Z86.16 Personal history of COVID-19
CPT/HCPCS: 36415; 36416; 71045; 71275; 80053; 80061; 81003; 83036; 83605; 84484; 85025; 85379; 87040; 87086; 93005; 93880; C9113; J1815; J2405; J3370; J7050; U0003; U0005

== ENCOUNTER 2021-10-25 12:34 | Outpatient (CLI) | payer MEDICARE | END 2021-10-25 12:35 | disposition home or self-care (01) | LOC: BICMAMMO 12:34 | PROVIDERS: ATTEND Family Medicine | DX: Z12.31 Encounter for screening mammogram for malignant neoplasm of breast (principal); Z98.890 Other specified postprocedural states; Z85.3 Personal history of malignant neoplasm of breast; Z80.3 Family history of malignant neoplasm of breast | CPT/HCPCS: 77063; 77067 ==

== ENCOUNTER 2021-11-14 10:00 | Outpatient (CLI) | payer MEDICARE | END 2021-11-14 10:01 | disposition home or self-care (01) | LOC: RAD 10:00 | PROVIDERS: ATTEND Internal Medicine Critical Care Medicine | DX: R06.00 Dyspnea, unspecified (principal); S22.009A Unspecified fracture of unspecified thoracic vertebra, initial encounter for closed fracture; S32.009A Unspecified fracture of unspecified lumbar vertebra, initial encounter for closed fracture | CPT/HCPCS: 71046 ==

== ENCOUNTER 2021-12-05 09:36 | Outpatient (CLI) | payer MEDICARE | END 2021-12-05 09:37 | disposition home or self-care (01) | LOC: CT 09:36 | PROVIDERS: ATTEND Nurse Practitioner Family | DX: I77.9 Disorder of arteries and arterioles, unspecified (principal); I70.90 Unspecified atherosclerosis | CPT/HCPCS: 70498; 82565 ==

== ENCOUNTER 2021-12-05 22:11 | Emergency (ER) | payer MEDICARE ==
[~2021-12-05 22:11] MED LIST changes: +Iopamidol 370 76% 100 ML VIAL ONE; -Iopamidol-370 76% 500 ML 1 ML ONE
[2021-12-05] MEDS ORDERED: Morphine 4 MG/ML VIAL ONE (22:50)
[2021-12-05 23:33] LABS: #Basophils 0.1 thou/uL (0.0-0.2); #Eosinphils 0.6 thou/uL (0.0-0.7); #Lymphocytes 2.8 thou/uL (1.20-3.40); #Monocytes 0.7 thou/uL (0.11-0.59); #Neutrophils 4.1 thou/uL (1.40-6.50); %Basophils 1.1 % (0.0-1.0); %Eosinophils 7.1 % (0.0-10.0); %Lymphocytes 34.4 % (21.0-51.0); %Monocytes 7.9 % (0.0-10.0); %Neutrophils 49.6 % (42.0-75.0); Hemoglobin 12.1 g/dL (12.0-16.0); Mean Corpuscular HGB CONC 33.3 g/dL (32.0-36.0); Mean Corpuscular Hemoglobin 31.4 pg (27.0-31.0); Mean Corpuscular Volume 94.4 fL (78.0-98.0); Mean Platelet Volume 7.5 fL (7.4-10.4); Platelet Count 278 thou/uL (130-400); RBC Distribution Width 12.4 % (11.5-14.5); Red Blood Cell (RBC) Count 3.85 mill/uL (4.20-5.40); White Blood Cell (WBC) Count 8.3 thou/uL (4.8-10.8)
[2021-12-05 23:45] LABS: ALT (SGPT) 11 U/L (8-55); AST (SGOT) 13 U/L (5-34); Albumin 3.4 g/dL (3.4-4.8); Alkaline Phosphatase 103 U/L (40-110); Anion Gap 13 mmol/L (10-20); BUN (Urea Nitrogen) 23 mg/dL (9.8-20.1); Bilirubin, Total 0.2 mg/dL (0.2-1.2); Calc. Creatinine Clearance 0 mL/min (70-130); Carbon Dioxide 26 mmol/L (23-31); Chloride 102 mmol/L (98-107); Globulin 3.1 g/dL (2.4-3.5); Glucose 208 mg/dL (80-115); Potassium 3.3 mmol/L (3.5-5.1); Protein, Total 6.5 g/dL (5.8-8.1); Sodium 138 mmol/L (136-145)
== END 2021-12-06 02:23 | disposition home or self-care (01) ==
LOC: ERS 22:11
DX: M79.662 Pain in left lower leg (principal); R60.0 Localized edema; I11.0 Hypertensive heart disease with heart failure; I50.9 Heart failure, unspecified; E03.9 Hypothyroidism, unspecified; E11.9 Type 2 diabetes mellitus without complications; M79.7 Fibromyalgia; I25.2 Old myocardial infarction; Z86.711 Personal history of pulmonary embolism; Z85.3 Personal history of malignant neoplasm of breast; I77.9 Disorder of arteries and arterioles, unspecified; I70.90 Unspecified atherosclerosis
CPT/HCPCS: 70498; 80053; 82565; 85025; 96374; J2270; Q9967

== ENCOUNTER 2022-06-26 14:54 | Outpatient (CLI) | payer MEDICARE ==
[2022-06-26 16:47] LABS: #Basophils 0.1 10x3/uL (0.0-0.2); #Eosinphils 0.3 10x3/uL (0.0-0.5); #Monocytes 0.7 10x3/uL (0.0-1.1); #Neutrophils 3.5 10x3/uL (1.5-8.4); %Eosinophils 3.8 % (0.0-6.0); %Lymphocytes 34.1 % (18.0-47.0); %Monocytes 10.1 % (0.0-10.0); %Neutrophils 50.9 % (40.0-75.0); Hemoglobin 13.8 g/dL (12.0-15.5); Mean Corpuscular HGB CONC 32.9 g/dL (32.0-36.0); Mean Corpuscular Hemoglobin 30.5 pg (27.0-33.0); Mean Corpuscular Volume 92.9 fl (81.6-98.3); Platelet Count 305 10x3/uL (150-450); RBC Distribution Width 13.3 % (11.5-14.5); Red Blood Cell (RBC) Count 4.52 10x6/uL (3.90-5.03); White Blood Cell (WBC) Count 6.9 10x3/uL (3.5-10.5)
== END 2022-06-26 14:55 | disposition home or self-care (01) ==
LOC: LABBT 14:54
PROVIDERS: ATTEND Orthopaedic Surgery Hand Surgery
DX: Z01.812 Encounter for preprocedural laboratory examination (principal); G56.02 Carpal tunnel syndrome, left upper limb; Z20.822 Contact with and (suspected) exposure to COVID-19
CPT/HCPCS: 85025; 87811

== ENCOUNTER 2022-12-18 19:30 | Outpatient (CLI) | payer OTHER | END 2022-12-18 19:31 | disposition home or self-care (01) | LOC: SLEEPLAB 19:30 | PROVIDERS: ATTEND Internal Medicine Critical Care Medicine | DX: G47.33 Obstructive sleep apnea (adult) (pediatric) (principal) | CPT/HCPCS: 95810 ==

== ENCOUNTER 2023-01-06 19:30 | Outpatient (CLI) | payer OTHER | END 2023-01-06 19:31 | disposition home or self-care (01) | LOC: SLEEPLAB 19:30 | PROVIDERS: ATTEND Internal Medicine Critical Care Medicine | DX: G47.33 Obstructive sleep apnea (adult) (pediatric) (principal) | CPT/HCPCS: 95811 ==

== ENCOUNTER 2023-01-29 15:09 | Outpatient (CLI) | payer OTHER | END 2023-01-29 15:10 | disposition home or self-care (01) | LOC: BICMAMMO 15:09 | PROVIDERS: ATTEND Family Medicine | DX: N63.21 Unspecified lump in the left breast, upper outer quadrant (principal) | CPT/HCPCS: 76642; 77066; G0279 ==

== ENCOUNTER 2023-10-02 13:40 | Emergency (ER) | payer OTHER ==
[~2023-10-02 13:40] MED LIST changes: -Iopamidol 370 76% 100 ML VIAL ONE; +Iopamidol-370 76% 500 ML MDV (1 ML CHARGE) ONE
[2023-10-02 14:48] LABS: Hematocrit 46.4 % (36.0-47.0); Hemoglobin 15.7 g/dL (12.0-16.0); Manual Diff?? YES; Mean Corpuscular HGB CONC 33.8 g/dL (32.0-36.0); Mean Corpuscular Volume 91.7 fl (78.0-98.0); Mean Platelet Volume 9.7 fL (7.4-10.4); Platelet Count 351 10x3/uL (130-400); RBC Distribution Width 13.2 % (11.5-14.5); Red Blood Cell (RBC) Count 5.06 mill/uL (4.20-5.40); White Blood Cell (WBC) Count 8.2 10x3/uL (4.8-10.8)
[2023-10-02] MEDS ORDERED: Ondansetron PF 4 MG/2 ML Vial ONE (15:01)
[2023-10-02 15:12] LABS: Delete Auto Diff?? YES
[2023-10-02 15:28] LABS: Band 3 % (5-11); Eosinophils 1 % (0-10); Lymphocytes 16 % (21-51); Monocytes 10 % (0-10); Neutrophil 66 % (42-75); Platelet Adequacy Comment Platelets Normal; Reactive Lymphocytes 4 % (0-10)
[2023-10-02 15:31] LABS: ALT (SGPT) 19 U/L (8-55); AST (SGOT) 22 U/L (5-34); Albumin 4.1 g/dL (3.4-4.8); Alkaline Phosphatase 81 U/L (40-110); Anion Gap 13 mmol/L (10-20); BUN (Urea Nitrogen) 14 mg/dL (9.8-20.1); Bilirubin, Total 0.5 mg/dL (0.2-1.2); Calc. Creatinine Clearance 0 mL/min (70-130); Calcium 9.5 mg/dL (7.8-10.44); Carbon Dioxide 26 mmol/L (23-31); Chloride 101 mmol/L (98-107); Estimated GFR 67; Globulin 3.7 g/dL (2.4-3.5); Glucose 94 mg/dL (80-115); Lipase 33 U/L (8-78); Potassium 3.2 mmol/L (3.5-5.1); Protein, Total 7.8 g/dL (5.8-8.1); Sodium 137 mmol/L (136-145)
[2023-10-02 15:45] LABS: Bacteria/HPF None Seen HPF (None Seen); Bilirubin Negative (Negative); Blood, Urine Negative (Negative); CAUTI Indications for Culture Dysuria,urgency,freq; Clarity Clear (Clear); Glucose, Urine (Dipstick) Greater than 1000 mg/dL (Negative); Ketone, Urine Trace mg/dL (Negative); Leukocyte Negative Leu/uL (Negative); Nitrite Negative (Negative); Protein, Urine (Dipstick) 20 mg/dL (Neg-Trace); Specific Gravity, Urine 1.047 (1.002-1.036); Squamous Epithelial 0-3 HPF (0-3); Urobilinogen Normal mg/dL (Less than 2); WBC/HPF 0-3 HPF (0-3)
[2023-10-02 15:48] LABS: Urine Culture Reflex No No
[2023-10-02] MEDS ORDERED: Potassium Bicarbonate/Cit Ac 20 MEQ TAB ONE (15:49)
[2023-10-02] MEDS ORDERED: Potassium Chloride 20 MEQ TAB ONE (15:51)
== END 2023-10-02 16:34 | disposition home or self-care (01) ==
LOC: ERS 13:40
DX: E87.6 Hypokalemia (principal); I25.10 Atherosclerotic heart disease of native coronary artery without angina pectoris; E11.9 Type 2 diabetes mellitus without complications; I11.0 Hypertensive heart disease with heart failure; I50.9 Heart failure, unspecified; E03.9 Hypothyroidism, unspecified; I25.2 Old myocardial infarction; Z79.82 Long term (current) use of aspirin; Z86.711 Personal history of pulmonary embolism; Z79.4 Long term (current) use of insulin; Z79.899 Other long term (current) drug therapy
CPT/HCPCS: 74177; 80053; 81001; 83690; 85025; 96361; 96374; J2405; Q9967

== ENCOUNTER 2024-07-26 13:26 | Outpatient (CLI) | payer OTHER | END 2024-07-26 13:27 | disposition home or self-care (01) | LOC: BICMAMMO 13:26 | PROVIDERS: ATTEND Family Medicine | DX: Z12.31 Encounter for screening mammogram for malignant neoplasm of breast (principal); Z78.0 Asymptomatic menopausal state; M85.851 Other specified disorders of bone density and structure, right thigh; Z80.3 Family history of malignant neoplasm of breast; Z98.890 Other specified postprocedural states; Z91.89 Other specified personal risk factors, not elsewhere classified | CPT/HCPCS: 77063; 77067; 77080 ==

== ENCOUNTER 2024-10-02 19:34 | Emergency (ER) | payer OTHER ==
[2024-10-02 20:00] LABS: #Basophils 0.03 10x3/uL (0.0-0.2); %Basophils 0.5 % (0.0-1.0); %Eosinophils 1.3 % (0.0-10.0); %Lymphocytes 28.5 % (21.0-51.0); %Monocytes 9.6 % (0.0-10.0); %Neutrophils 59.9 % (42.0-75.0); Hematocrit 46.3 % (36.0-47.0); Hemoglobin 15.3 g/dL (12.0-16.0); Mean Corpuscular Hemoglobin 30.4 pg (27.0-31.0); Mean Platelet Volume 10.1 fL (7.4-10.4); Platelet Count 327 10x3/uL (130-400); RBC Distribution Width 13.6 % (11.5-14.5); Red Blood Cell (RBC) Count 5.03 mill/uL (4.20-5.40)
[2024-10-02 20:13] LABS: ALT (SGPT) 50 U/L (8-55); AST (SGOT) 32 U/L (5-34); Albumin 3.6 g/dL (3.4-4.8); Alkaline Phosphatase 85 U/L (40-110); Anion Gap 16 mmol/L (10-20); BUN (Urea Nitrogen) 12 mg/dL (9.8-20.1); Bilirubin, Total 0.5 mg/dL (0.2-1.2); Calc. Creatinine Clearance 0 mL/min (70-130); Calcium 8.9 mg/dL (7.8-10.44); Carbon Dioxide 20 mmol/L (23-31); Chloride 110 mmol/L (98-107); Estimated GFR 71; Globulin 3.9 g/dL (2.4-3.5); Glucose 98 mg/dL (83-110); Potassium 3.6 mmol/L (3.5-5.1); Protein, Total 7.5 g/dL (5.8-8.1); Sodium 142 mmol/L (136-145)
[2024-10-02 20:31] LABS: Bilirubin 1+ (Negative); Blood, Urine 1+ (Negative); CAUTI Indications for Culture Acute Hematuria; Clarity Turbid (Clear); Glucose, Urine (Dipstick) 200 mg/dL (Negative); Ketone, Urine 10 mg/dL (Negative); Leukocyte Negative Leu/uL (Negative); Nitrite Negative (Negative); Protein, Urine (Dipstick) 100 mg/dL (Neg-Trace); Specific Gravity, Urine 1.028 (1.002-1.036); Squamous Epithelial 0-3 HPF (0-3); WBC/HPF 0-3 HPF (0-3)
[2024-10-02 20:32] LABS: Bacteria/HPF Rare-Few HPF (None Seen)
[2024-10-02 20:33] LABS: Urine Culture Reflex No No
[2024-10-02] MEDS ORDERED: Ondansetron PF 4 MG/2 ML Vial ONE (20:39)
[2024-10-02 22:38] LABS: Troponin I Less than 0.010 ng/mL (< 0.028)
== END 2024-10-03 00:28 | disposition home or self-care (01) ==
LOC: ERS 19:34
DX: K52.9 Noninfective gastroenteritis and colitis, unspecified (principal); N39.0 Urinary tract infection, site not specified; I25.2 Old myocardial infarction; I11.0 Hypertensive heart disease with heart failure; I50.9 Heart failure, unspecified; E03.9 Hypothyroidism, unspecified; I25.10 Atherosclerotic heart disease of native coronary artery without angina pectoris; Z79.01 Long term (current) use of anticoagulants; Z79.82 Long term (current) use of aspirin; Z79.899 Other long term (current) drug therapy; Z86.711 Personal history of pulmonary embolism
CPT/HCPCS: 80053; 81001; 84484; 85025; 93005; J2405; 36415; 96361; 96374

== ENCOUNTER 2025-05-02 16:05 | Outpatient (CLI) | payer OTHER | END 2025-05-02 16:06 | disposition home or self-care (01) | LOC: BICRAD 16:05 | PROVIDERS: ATTEND Family Medicine | DX: R06.09 Other forms of dyspnea (principal) | CPT/HCPCS: 71046 ==

== ENCOUNTER 2025-09-26 13:52 | Outpatient (CLI) | payer OTHER | END 2025-09-26 13:53 | disposition home or self-care (01) | LOC: BICMAMMO 13:52 | PROVIDERS: ATTEND Obstetrics & Gynecology | DX: Z12.31 Encounter for screening mammogram for malignant neoplasm of breast (principal); Z80.3 Family history of malignant neoplasm of breast; Z85.3 Personal history of malignant neoplasm of breast; Z98.890 Other specified postprocedural states; Z91.89 Other specified personal risk factors, not elsewhere classified | CPT/HCPCS: 77063; 77067 ==